=== PATIENT | female | born 1990 | race Caucasian/White ===

== ENCOUNTER 2016-09-21 11:37 | Emergency (ER) | payer MEDICARE, MEDICAID ==
[~2016-09-21] VITALS: Ht 175.3 cm; Wt 96.8 kg
[~2016-09-21 11:37] MED LIST: ACULAR OPHTHALMI5 ML OS; ADDERALL30 MG PO; ADIPEX-P37.5 M1 PO; ADIPEX-P37.5 MG PO; AMBIEN 5MG TABLE5 MG PO; AMOXICILLIN 50500 MG PO; AMOXICILLIN 8751 TAB PO; ANTIVERT 25MG25 MG PO; ASPIRIN 32325 MG/TAB PO; ATIVAN 0.50.5 MG/TAB PO; B-12 500 MCG PO; BACTRIM DS 8001 TAB PO; CAMBIA50 MG PO; CARAFATE S1 GM/10 ML PO; CEPHALEXIN500 M1 PO; CIPRO 500MG TA500 MG PO; COMPAZINE 110 MG/TAB PO; CYANOCOBAL1000 MCG/1 IM; DIAMOX 250MG250 MG PO; DIAMOX SEQUELS500 M1 PO; EFFEXOR XR37.5 MG/CA PO; EFFEXOR XR75 MG/CAP PO; EYE DROPS; FIORICET 325 MG1 TA1 PO; FLAGYL500 MG PO; FOLIC ACID 11 MG/TA1 PO; HIBICLENS4% TP; IMITREX 6M6 MG/0.5 M SQ; INDERAL 10MG10 MG PO; INDOCIN25 MG PO; K-DUR 10 MEQ T10 MEQ PO; K-TAB20 PO; KLOR-CON M2020 MEQ PO; KLOR-CON20 MEQ PO; LEVAQUIN 5500 MG/TA1 PO; LEXAPRO 5MG5 MG PO; LORTAB 5/500 501 TAB PO; LORTABELIX PO; LOVENOX 4040 MG/0.4 SQ; MAXALT5 MG PO; MOTRIN 800800 MG/TAB PO; MULTI VITAMINS1 TAB PO; NAPROSYN500 MG PO; NAPROXEN 3375 MG/TAB PO; NEURONTIN250 MG/5 M PO; NO HOME MEDICATIONS; NORCO 325 MG-51 TAB PO; NORCO 325 MG-7.1 TAB PO; NORCOELIX PO; OSCAL 500 TAB500 MG PO; PEN-VEE K500 MG PO; PERCOCET 325 MG1 TA2 PO; PHENERGAN 25 TA25 MG PO; PHENERGAN W/CO120 ML PO; PHENERGAN25 MG RC; PREDNISONE20 MG PO; PRILOSEC 20MG20 MG PO; PROMETHAZINE12.5 M5 PO; REGLAN 10MG10 MG/TAB PO; ROBITUSSIN A-C S1 M1 PO; TEMOVATE OINT30 GM TP; THIAMINE 1100 MG/TAB PO; TORADOL10 MG PO; TRAMADOL50 MG PO; TROKEN200; TROKEND25 PO; TYLENOL 500MG500 MG PO; TYLENOL/CODEINE1 ML PO; ULTRAM 50MG TAB50 MG PO; VALIUM 2MG T2 MG/TAB PO; VALIUM 5MG T5 MG/TAB PO; VIGAMOX 0.5%; VITAMIN B-625 MG PO; VITAMIN B11000 MCG/M IM; VITAMIN D 1001000 IU PO; VITAMIN D1000 IU PO; WELLBUTRIN SR150 M1; ZITHROMAX 250M250 MG PO; ZITHROMAX Z PA250 MG PO; ZITHROMAX500 M2 PO; ZOFRAN 4MG T4 MG/TAB; ZOFRAN 4MG T4 MG/TAB PO; ZOFRAN INJ4 MG/2 ML IV; ZOFRAN ODT4 MG PO; ZOFRAN ODT8 MG PO; ZOFRAN8 MG PO; antibiotic
[2016-09-21 11:40] VITALS: BP 118/64; TEMP 98.1
[2016-09-21 12:24] LABS: HEMOGLOBIN 12.3 g/dl (12.5-16.0); MEAN CELL VOLUME 100 fl (80.0-100.0); MEAN CORPUSCULAR HEMOGLOBIN 34 pg (27.0-31.0); MEAN CORPUSCULAR HGB CONC 34 g/dl (33.0-37.0); MEAN PLATELET VOLUME 10.6 fl (7.4-10.4); PLATELET COUNT 212 K/mm3 (130-400); RED BLOOD COUNT 3.58 M/mm3 (4.10-5.30); REDCELL DISTRIBUTION WIDTH-CV 12.1 % (11.5-14.5); WHITE BLOOD COUNT 3.5 K/mm3 (4.8-10.8)
[2016-09-21 12:25] LABS: ADD PATHOLOGY DIFF REVIEW NO; HEMATOCRIT 35.8 % (37.0-47.0)
[2016-09-21 12:44] LABS: ADJUSTED CALCIUM 9.1 mg/dL (8.4-10.2); BILIRUBIN,TOTAL 0.7 mg/dL (0.0-1.0); CALCIUM 8.3 mg/dL (8.4-10.2); CREATININE, serum 0.55 mg/dL (0.52-1.25); TOTAL PROTEIN 6.6 gm/dL (6.4-8.2)
[2016-09-21 13:06] LABS: PH 5 (5-8); URINE APPEARANCE Cloudy; URINE BACTERIA Rare /hpf; URINE BILIRUBIN Negative (NEGATIVE); URINE BLOOD 3+ (NEGATIVE); URINE COLOR Amber; URINE GLUCOSE Negative (NEGATIVE); URINE KETONE Trace (NEGATIVE); URINE RBC >50 /hpf; URINE WBC >50 /hpf
[2016-09-21 13:15] LABS: BAND 8 % (0-10); BASOPHIL 1 % (0-2); NEUTROPHILS 48 % (42.0-75.2); PLATELET ESTIMATE NORMAL (NORMAL); TOTAL CELLS COUNTED 100
[2016-09-21] MEDS ORDERED: NORCO 325 MG-51 TAB PO (13:20)
[2016-09-21] MEDS ORDERED: CEFTIN500 MG PO (13:20)
[2016-09-21 13:25] LABS: INFLUENZA B NEGATIVE
[2016-09-21 14:08] VITALS: PULSE 80
== END 2016-09-21 14:08 | disposition home or self-care (01) ==
LOC: COL.ER 11:37
PROVIDERS: Emergency Medicine
DX: N39.0 Urinary tract infection, site not specified (principal)
CPT/HCPCS: J0696; J2270; J2405; J7030

== ENCOUNTER 2016-12-14 17:08 | Emergency (ER) | payer MEDICARE, MEDICAID ==
[~2016-12-14] VITALS: Ht 175.3 cm; Wt 85.0 kg
[~2016-12-14 17:08] MED LIST changes: +CEFTIN500 MG PO
[2016-12-14 17:15] VITALS: BP 110/66; TEMP 97.8
[2016-12-14 18:08] LABS: PH 7 (5-8); URINE APPEARANCE Hazy; URINE BACTERIA Rare /hpf; URINE BILIRUBIN Negative (NEGATIVE); URINE BLOOD Negative (NEGATIVE); URINE COLOR Yellow; URINE GLUCOSE Negative (NEGATIVE); URINE KETONE Negative (NEGATIVE); URINE RBC 0-2 /hpf; URINE UROBILINOGEN >=4.0 mg/dL (NEGATIVE)
[2016-12-14 18:15] LABS: BASO % 0.2 % (0.0-2.0); EOS % 0.7 % (0-4.0); GRAN # 2.2 (1.4-6.5); GRAN % 46.6 % (42.2-75.2); HEMATOCRIT 40.8 % (37.0-47.0); LYMPH # 2.1 (1.2-3.4); LYMPH % 46.4 % (20.0-51.0); MEAN CELL VOLUME 99 fl (80.0-100.0); MEAN CORPUSCULAR HEMOGLOBIN 34 pg (27.0-31.0); MEAN CORPUSCULAR HGB CONC 34 g/dl (33.0-37.0); MEAN PLATELET VOLUME 10.2 fl (7.4-10.4); MONO # 0.3 (0.1-0.6); MONO % 5.9 % (1.7-9.3); PLATELET COUNT 286 K/mm3 (130-400); RED BLOOD COUNT 4.12 M/mm3 (4.10-5.30); REDCELL DISTRIBUTION WIDTH-CV 12.4 % (11.5-14.5); WHITE BLOOD COUNT 4.6 K/mm3 (4.8-10.8)
[2016-12-14 18:22] LABS: ADJUSTED CALCIUM 9.7 mg/dL (8.4-10.2); ALBUMIN 3.9 gm/dL (3.5-5.0); BILIRUBIN,TOTAL 0.9 mg/dL (0.0-1.0); CALCIUM 9.6 mg/dL (8.4-10.2); CREATININE, serum 0.64 mg/dL (0.52-1.25); POTASSIUM 3.6 mmol/L (3.4-5.0); TOTAL PROTEIN 7.7 gm/dL (6.4-8.2)
[2016-12-14] MEDS ORDERED: ZOFRAN 4MG T4 MG/TAB PO (18:45)
[2016-12-14 19:18] VITALS: PULSE 92
== END 2016-12-14 19:20 | disposition home or self-care (01) ==
LOC: COL.ER 17:08
PROVIDERS: Nurse Practitioner
DX: R10.84 Generalized abdominal pain (principal); Z87.442 Personal history of urinary calculi; F17.210 Nicotine dependence, cigarettes, uncomplicated; Z98.84 Bariatric surgery status
CPT/HCPCS: J1885; J2405; J7030

== ENCOUNTER → 2016-12-26 | Outpatient (CLI) | payer MEDICARE, MEDICAID | LOC: ZCOL.LAB 16:22 | DX: Z02.89 Encounter for other administrative examinations (principal) ==

== ENCOUNTER → 2017-02-01 | Outpatient (REF) ==
[2017-02-01 19:19] LABS: TOTAL IRON BINDING CAPACITY 400 ug/dL (265-497)
== END ==
LOC: ZLAB.WCH 18:33
PROVIDERS: Internal Medicine
DX: Z01.89 Encounter for other specified special examinations (principal)

== ENCOUNTER 2017-02-27 16:35 | Emergency (ER) | payer MEDICARE, MEDICAID ==
[~2017-02-27] VITALS: Ht 175.3 cm; Wt 87.3 kg
[2017-02-27 16:45] VITALS: BP 119/82; TEMP 97.7
[2017-02-27 18:15] LABS: BASO % 0.3 % (0.0-2.0); EOS % 0.3 % (0-4.0); GRAN % 49.6 % (42.2-75.2); HEMOGLOBIN 12.7 g/dl (12.5-16.0); LYMPH # 1.7 (1.2-3.4); LYMPH % 43.4 % (20.0-51.0); MEAN CELL VOLUME 101 fl (80.0-100.0); MEAN CORPUSCULAR HEMOGLOBIN 35 pg (27.0-31.0); MEAN CORPUSCULAR HGB CONC 35 g/dl (33.0-37.0); MEAN PLATELET VOLUME 10.2 fl (7.4-10.4); MONO # 0.2 (0.1-0.6); MONO % 6.1 % (1.7-9.3); PLATELET COUNT 192 K/mm3 (130-400); RED BLOOD COUNT 3.66 M/mm3 (4.10-5.30); REDCELL DISTRIBUTION WIDTH-CV 13.7 % (11.5-14.5); WHITE BLOOD COUNT 3.9 K/mm3 (4.8-10.8)
[2017-02-27 18:16] LABS: HEMATOCRIT 36.8 % (37.0-47.0)
[2017-02-27 18:27] LABS: ADJUSTED CALCIUM 9.2 mg/dL (8.4-10.2); ALANINE AMINOTRANSFERASE 17 U/L (9-52); ALBUMIN 3.4 gm/dL (3.5-5.0); ALKALINE PHOSPHATASE 77 U/L (50-136); ANION GAP 10 mmol/L (7-16); BILIRUBIN,TOTAL 1.4 mg/dL (0.0-1.0); BLOOD UREA NITROGEN 9 mg/dL (7-17); CALCIUM 8.7 mg/dL (8.4-10.2); CARBON DIOXIDE 22 mmol/L (22-30); CHLORIDE 106 mmol/L (98-107); CREATININE, serum 0.54 mg/dL (0.52-1.25); GLUCOSE 80 mg/dL (74-106); LIPASE 20 U/L (23-300); POTASSIUM 3.4 mmol/L (3.4-5.0); SODIUM 137 mmol/L (137-145); TOTAL PROTEIN 6.8 gm/dL (6.4-8.2)
[2017-02-27 18:35] LABS: C-REACTIVE PROTEIN < 0.5 mg/dL (0.0-0.9)
[2017-02-27 19:40] LABS: PH 6 (5-8); URINE APPEARANCE Hazy; URINE BACTERIA None Seen /hpf; URINE BILIRUBIN Negative (NEGATIVE); URINE BLOOD Negative (NEGATIVE); URINE COLOR Yellow; URINE GLUCOSE Negative (NEGATIVE); URINE KETONE 1+ (NEGATIVE); URINE RBC 0-2 /hpf; URINE UROBILINOGEN Negative (NEGATIVE)
[2017-02-27 21:09] VITALS: PULSE 65
== END 2017-02-27 21:10 | disposition home or self-care (01) ==
LOC: COL.ER 16:35
PROVIDERS: Nurse Practitioner
DX: M54.6 Pain in thoracic spine (principal); R10.13 Epigastric pain; G93.2 Benign intracranial hypertension; F17.200 Nicotine dependence, unspecified, uncomplicated; F12.99 Cannabis use, unspecified with unspecified cannabis-induced disorder; G43.909 Migraine, unspecified, not intractable, without status migrainosus; Z87.442 Personal history of urinary calculi; Z90.49 Acquired absence of other specified parts of digestive tract; Z98.84 Bariatric surgery status
CPT/HCPCS: J1885; J2405; J7030

== ENCOUNTER 2017-07-07 00:14 | Emergency (ER) | payer MEDICARE, MEDICAID ==
[~2017-07-07] VITALS: Ht 175.3 cm; Wt 93.2 kg
[~2017-07-07 00:14] MED LIST changes: +ADDERALL10 MG PO; +KLOR-CON/EF25 MEQ PO; +LINZESS290CAP PO; +MONONESSA 35 MC1 TA1 PO; +NATURE'S BLEND100 M2 PO; +PRIL40 PO; -PRILOSEC 20MG20 MG PO; +PROZAC40 MG PO; +VITAMIN B12 781 TAB PO; -VITAMIN D1000 IU PO; +VITAMIND3 5000 PO; +XANAX 0.5MG0.5 MG PO; +ZOLOFT 50MG50 MG PO
[2017-07-07 00:20] VITALS: TEMP 98.6
[2017-07-07 01:25] LABS: BASO % 0.4 % (0.0-2.0); EOS % 0.6 % (0-4.0); GRAN # 2.8 (1.4-6.5); GRAN % 52.3 % (42.2-75.2); LYMPH # 2.1 (1.2-3.4); LYMPH % 40.3 % (20.0-51.0); MEAN CELL VOLUME 101 fl (80.0-100.0); MEAN CORPUSCULAR HGB CONC 34 g/dl (33.0-37.0); MEAN PLATELET VOLUME 10.1 fl (7.4-10.4); MONO # 0.3 (0.1-0.6); MONO % 6.2 % (1.7-9.3); PLATELET COUNT 199 K/mm3 (130-400); RED BLOOD COUNT 3.49 M/mm3 (4.10-5.30); WHITE BLOOD COUNT 5.3 K/mm3 (4.8-10.8)
[2017-07-07 01:31] LABS: COLLECTION METHOD CLEAN CATCH
[2017-07-07 01:34] LABS: ADJUSTED CALCIUM 8.8 mg/dL (8.4-10.2); ALBUMIN 3.6 gm/dL (3.5-5.0); CALCIUM 8.5 mg/dL (8.4-10.2); CREATININE, serum 0.51 mg/dL (0.52-1.25); POTASSIUM 3.2 mmol/L (3.4-5.0); TOTAL PROTEIN 6.6 gm/dL (6.4-8.2)
[2017-07-07 01:37] LABS: HEMATOCRIT 35.2 % (37.0-47.0); HEMOGLOBIN 11.8 g/dl (12.5-16.0); MEAN CORPUSCULAR HEMOGLOBIN 34 pg (27.0-31.0)
[2017-07-07 01:37] LABS: MUCOUS Present /lpf; PH 6 (5-8); URINE APPEARANCE Hazy; URINE BACTERIA None Seen /hpf; URINE BILIRUBIN Negative (NEGATIVE); URINE BLOOD Negative (NEGATIVE); URINE COLOR Yellow; URINE GLUCOSE Negative (NEGATIVE); URINE KETONE Trace (NEGATIVE); URINE LEUKOCYTE ESTERASE Negative (NEGATIVE); URINE PROTEIN(semi-quant) 1+ (NEGATIVE); URINE RBC 0-2 /hpf; URINE UROBILINOGEN >=4.0 mg/dL (NEGATIVE)
[2017-07-07 02:32] VITALS: BP 110/74; PULSE 91
== END 2017-07-07 02:23 | disposition home or self-care (01) ==
LOC: COL.ER 00:14
PROVIDERS: Physician Assistant
DX: E87.6 Hypokalemia (principal); F90.9 Attention-deficit hyperactivity disorder, unspecified type; F17.210 Nicotine dependence, cigarettes, uncomplicated; Z90.49 Acquired absence of other specified parts of digestive tract; Z98.890 Other specified postprocedural states; Z98.84 Bariatric surgery status

== ENCOUNTER 2017-08-18 23:48 | Emergency (ER) | payer MEDICARE, MEDICAID ==
[~2017-08-18] VITALS: Ht 172.7 cm; Wt 93.2 kg
[2017-08-18 23:51] VITALS: TEMP 97.9
[2017-08-18] MEDS ORDERED: EFFEXOR XR37.5 MG/CA PO (23:58)
[2017-08-18] MEDS ORDERED: B COMPLEX #11 TA1 PO (23:59)
[2017-08-19] MEDS ORDERED: AMBIEN 10MG10 MG PO
[2017-08-19 00:46] LABS: BASO % 0.3 % (0.0-2.0); EOS # 0.1 (0.0-0.7); EOS % 0.8 % (0-4.0); GRAN # 3.5 (1.4-6.5); HEMATOCRIT 37.5 % (37.0-47.0); HEMOGLOBIN 12.2 g/dl (12.5-16.0); LYMPH # 2.7 (1.2-3.4); LYMPH % 40.7 % (20.0-51.0); MEAN CELL VOLUME 101 fl (80.0-100.0); MEAN CORPUSCULAR HEMOGLOBIN 33 pg (27.0-31.0); MEAN CORPUSCULAR HGB CONC 33 g/dl (33.0-37.0); MEAN PLATELET VOLUME 9.7 fl (7.4-10.4); MONO # 0.3 (0.1-0.6); MONO % 4.9 % (1.7-9.3); PLATELET COUNT 291 K/mm3 (130-400); RED BLOOD COUNT 3.73 M/mm3 (4.10-5.30); REDCELL DISTRIBUTION WIDTH-CV 13.3 % (11.5-14.5)
[2017-08-19 01:00] LABS: ALANINE AMINOTRANSFERASE 22 U/L (9-52); ALBUMIN 3.8 gm/dL (3.5-5.0); ALKALINE PHOSPHATASE 85 U/L (50-136); ANION GAP 9 mmol/L (7-16); AST,SGOT 15 U/L (15-37); BILIRUBIN,TOTAL 0.4 mg/dL (0.0-1.0); BLOOD UREA NITROGEN 15 mg/dL (7-17); CALCIUM 8.7 mg/dL (8.4-10.2); CARBON DIOXIDE 24 mmol/L (22-30); CHLORIDE 108 mmol/L (98-107); GLUCOSE 99 mg/dL (74-106); POTASSIUM 3.6 mmol/L (3.4-5.0); SODIUM 141 mmol/L (137-145); TOTAL PROTEIN 7.3 gm/dL (6.4-8.2)
[2017-08-19 01:03] LABS: C-REACTIVE PROTEIN < 0.5 mg/dL (0.0-0.9)
[2017-08-19 01:12] LABS: ERYTHROCYTE SEDIMENTATION RATE 34 mm/hr (0-20)
[2017-08-19 01:20] LABS: COLLECTION METHOD CLEAN CATCH
[2017-08-19 01:26] LABS: MUCOUS Present /lpf; PH 6 (5-8); URINE APPEARANCE Hazy; URINE BACTERIA Rare /hpf; URINE BILIRUBIN Negative (NEGATIVE); URINE BLOOD 3+ (NEGATIVE); URINE COLOR Yellow; URINE GLUCOSE Negative (NEGATIVE); URINE KETONE Negative (NEGATIVE); URINE LEUKOCYTE ESTERASE Trace (NEGATIVE); URINE NITRATE Negative (NEGATIVE); URINE PROTEIN(semi-quant) 2+ (NEGATIVE); URINE RBC >50 /hpf
[2017-08-19] MEDS ORDERED: CIPRO 500MG TA500 MG PO (01:40)
[2017-08-19 02:52] VITALS: BP 102/50; PULSE 75
== END 2017-08-19 02:57 | disposition home or self-care (01) ==
LOC: COL.ER 23:48
PROVIDERS: Nurse Practitioner Primary Care
DX: N12 Tubulo-interstitial nephritis, not specified as acute or chronic (principal); F17.210 Nicotine dependence, cigarettes, uncomplicated; Z90.49 Acquired absence of other specified parts of digestive tract; Z87.442 Personal history of urinary calculi
CPT/HCPCS: J0696

== ENCOUNTER → 2017-09-24 | Outpatient (REF) ==
[~2017-09-24] MED LIST changes: +AMBIEN 10MG10 MG PO; +B COMPLEX #11 TA1 PO
[2017-09-24 18:48] LABS: IRON,SERUM 67 ug/dL (35-150)
[2017-09-24 18:57] LABS: TOTAL IRON BINDING CAPACITY 421 ug/dL (265-497)
== END ==
LOC: ZLAB.WCH 18:26
PROVIDERS: Physician Assistant
DX: Z01.89 Encounter for other specified special examinations (principal)

== ENCOUNTER → 2018-01-02 | Outpatient (REF) | LOC: ZLAB.WCH 16:03 | DX: Z01.89 Encounter for other specified special examinations (principal) ==

== ENCOUNTER 2018-04-11 13:27 | Emergency (ER) | payer MEDICARE, MEDICAID ==
[~2018-04-11] VITALS: Ht 175.3 cm; Wt 104.5 kg
[2018-04-11 13:31] VITALS: TEMP 98.6
[2018-04-11] MEDS ORDERED: VENTOLIN0.09 MG IH (13:58)
[2018-04-11] MEDS ORDERED: ZOLOFT 100MG100 MG PO (13:59)
[2018-04-11] MEDS ORDERED: FLONASE NASAL S16 GM NS (14:00)
[2018-04-11 14:21] LABS: COLLECTION METHOD CLEAN CATCH
[2018-04-11 14:26] LABS: BASO % 0.5 % (0.0-2.0); EOS # 0.1 (0.0-0.7); EOS % 1.2 % (0-4.0); GRAN # 2.9 (1.4-6.5); GRAN % 51.2 % (42.2-75.2); HEMATOCRIT 37.4 % (37.0-47.0); HEMOGLOBIN 12.1 g/dl (12.5-16.0); LYMPH # 2.3 (1.2-3.4); LYMPH % 39.7 % (20.0-51.0); MEAN CELL VOLUME 100 fl (80.0-100.0); MEAN CORPUSCULAR HEMOGLOBIN 32 pg (27.0-31.0); MEAN CORPUSCULAR HGB CONC 32 g/dl (33.0-37.0); MEAN PLATELET VOLUME 9.6 fl (7.4-10.4); MONO # 0.4 (0.1-0.6); MONO % 7.2 % (1.7-9.3); PLATELET COUNT 308 K/mm3 (130-400); RED BLOOD COUNT 3.76 M/mm3 (4.10-5.30)
[2018-04-11 14:37] LABS: ALBUMIN 3.7 gm/dL (3.5-5.0); BILIRUBIN,TOTAL 0.6 mg/dL (0.0-1.0); CREATININE, serum 0.58 mg/dL (0.52-1.25); POTASSIUM 3.8 mmol/L (3.4-5.0); TOTAL PROTEIN 7.4 gm/dL (6.4-8.2)
[2018-04-11 15:00] LABS: MUCOUS Present /lpf; PH 6 (5-8); URINE APPEARANCE Hazy; URINE BACTERIA None Seen /hpf; URINE BILIRUBIN Negative (NEGATIVE); URINE BLOOD 3+ (NEGATIVE); URINE COLOR Yellow; URINE GLUCOSE Negative (NEGATIVE); URINE KETONE Negative (NEGATIVE); URINE LEUKOCYTE ESTERASE Negative (NEGATIVE); URINE NITRATE Negative (NEGATIVE); URINE PROTEIN(semi-quant) 1+ (NEGATIVE); URINE UROBILINOGEN Negative (NEGATIVE)
[2018-04-11] MEDS ORDERED: FLEXERIL 1010 MG/TAB PO (15:05)
[2018-04-11 15:25] VITALS: BP 101/55; PULSE 66
== END 2018-04-11 15:29 | disposition home or self-care (01) ==
LOC: COL.ER 13:27
PROVIDERS: Emergency Medicine
DX: M54.5 Low back pain (principal); M53.3 Sacrococcygeal disorders, not elsewhere classified; F17.210 Nicotine dependence, cigarettes, uncomplicated; Z79.899 Other long term (current) drug therapy
CPT/HCPCS: J1630; J2270; J2405; J7030

== ENCOUNTER 2018-05-03 08:02 | Emergency (ER) | payer MEDICARE, MEDICAID ==
[~2018-05-03] VITALS: Ht 175.3 cm; Wt 109.1 kg
[~2018-05-03 08:02] MED LIST changes: +FLEXERIL 1010 MG/TAB PO; +FLONASE NASAL S16 GM NS; +VENTOLIN0.09 MG IH; +ZOLOFT 100MG100 MG PO
[2018-05-03 08:11] VITALS: BP 118/77; TEMP 98.4
[2018-05-03] MEDS ORDERED: CRUTCHES MC (09:15)
[2018-05-03 09:26] VITALS: PULSE 94
== END 2018-05-03 09:26 | disposition home or self-care (01) ==
LOC: COL.ER 08:02
DX: S92.351A Displaced fracture of fifth metatarsal bone, right foot, initial encounter for closed fracture (principal); F17.210 Nicotine dependence, cigarettes, uncomplicated; Z79.51 Long term (current) use of inhaled steroids; X50.0XXA Overexertion from strenuous movement or load, initial encounter; Y92.009 Unspecified place in unspecified non-institutional (private) residence as the place of occurrence of the external cause
CPT/HCPCS: Q4045

== ENCOUNTER 2018-05-25 09:44 | Emergency (ER) | payer MEDICARE, MEDICAID ==
[~2018-05-25] VITALS: Ht 175.3 cm; Wt 100.0 kg
[~2018-05-25 09:44] MED LIST changes: +CRUTCHES MC
[2018-05-25 09:46] VITALS: TEMP 97.8
[2018-05-25] MEDS ORDERED: VOLTAREN-XR100 MG PO (09:57)
[2018-05-25] MEDS ORDERED: CYMBALTA 60MG60 MG PO (10:00)
[2018-05-25] MEDS ORDERED: CYMBALTA 30MG30 MG PO (10:01)
[2018-05-25 10:34] LABS: BASO % 0.6 % (0.0-2.0); EOS # 0.1 (0.0-0.7); EOS % 1.3 % (0-4.0); GRAN # 2.6 (1.4-6.5); GRAN % 54.9 % (42.2-75.2); HEMOGLOBIN 12.1 g/dl (12.5-16.0); LYMPH # 1.7 (1.2-3.4); LYMPH % 36.3 % (20.0-51.0); MEAN CELL VOLUME 95 fl (80.0-100.0); MEAN CORPUSCULAR HEMOGLOBIN 32 pg (27.0-31.0); MEAN CORPUSCULAR HGB CONC 33 g/dl (33.0-37.0); MEAN PLATELET VOLUME 10.2 fl (7.4-10.4); MONO # 0.3 (0.1-0.6); MONO % 6.7 % (1.7-9.3); PLATELET COUNT 226 K/mm3 (130-400); RED BLOOD COUNT 3.84 M/mm3 (4.10-5.30); REDCELL DISTRIBUTION WIDTH-CV 14.8 % (11.5-14.5)
[2018-05-25 10:38] LABS: HEMATOCRIT 36.5 % (37.0-47.0)
[2018-05-25 10:43] LABS: ALBUMIN 3.4 gm/dL (3.5-5.0); BILIRUBIN,TOTAL 0.9 mg/dL (0.0-1.0); CALCIUM 8.1 mg/dL (8.4-10.2); CREATININE, serum 0.66 mg/dL (0.52-1.25); POTASSIUM 3.5 mmol/L (3.4-5.0); TOTAL PROTEIN 6.8 gm/dL (6.4-8.2)
[2018-05-25 10:55] LABS: COLLECTION METHOD CLEAN CATCH
[2018-05-25 11:11] LABS: MUCOUS Present /lpf; PH 6 (5-8); SQUAMOUS EPITHELIAL 20-50 /hpf; URINE APPEARANCE Cloudy; URINE BACTERIA None Seen /hpf; URINE BILIRUBIN Negative (NEGATIVE); URINE BLOOD 2+ (NEGATIVE); URINE COLOR Yellow; URINE GLUCOSE Negative (NEGATIVE); URINE KETONE Negative (NEGATIVE); URINE LEUKOCYTE ESTERASE Trace (NEGATIVE); URINE NITRATE Negative (NEGATIVE); URINE PROTEIN(semi-quant) Negative (NEGATIVE); URINE UROBILINOGEN Negative (NEGATIVE)
[2018-05-25] MEDS ORDERED: PHENERGAN 25 TA25 MG PO (11:46)
[2018-05-25] MEDS ORDERED: PRIL40 PO (11:46)
[2018-05-25 12:04] VITALS: BP 100/74; PULSE 60
== END 2018-05-25 12:06 | disposition home or self-care (01) ==
LOC: COL.ER 09:44
PROVIDERS: Emergency Medicine
DX: R10.12 Left upper quadrant pain (principal); Z98.84 Bariatric surgery status; Z79.51 Long term (current) use of inhaled steroids; Z98.890 Other specified postprocedural states
CPT/HCPCS: C9113; J0780; J1170; J7030

== ENCOUNTER 2018-05-29 15:59 | Emergency (ER) | payer MEDICARE, MEDICAID ==
[~2018-05-29] VITALS: Ht 175.3 cm; Wt 106.8 kg
[~2018-05-29 15:59] MED LIST changes: +CYMBALTA 30MG30 MG PO; +CYMBALTA 60MG60 MG PO; +VOLTAREN-XR100 MG PO
[2018-05-29 16:04] VITALS: TEMP 98.4
[2018-05-29 16:28] LABS: BASO % 0.3 % (0.0-2.0); EOS % 0.3 % (0-4.0); GRAN # 4.1 (1.4-6.5); GRAN % 59.5 % (42.2-75.2); HEMATOCRIT 37.9 % (37.0-47.0); HEMOGLOBIN 12.6 g/dl (12.5-16.0); LYMPH # 2.3 (1.2-3.4); LYMPH % 34.2 % (20.0-51.0); MEAN CELL VOLUME 94 fl (80.0-100.0); MEAN CORPUSCULAR HEMOGLOBIN 31 pg (27.0-31.0); MEAN CORPUSCULAR HGB CONC 33 g/dl (33.0-37.0); MEAN PLATELET VOLUME 9.8 fl (7.4-10.4); MONO # 0.4 (0.1-0.6); MONO % 5.4 % (1.7-9.3); PLATELET COUNT 249 K/mm3 (130-400); RED BLOOD COUNT 4.03 M/mm3 (4.10-5.30); REDCELL DISTRIBUTION WIDTH-CV 15.1 % (11.5-14.5)
[2018-05-29 16:53] LABS: ALBUMIN 3.9 gm/dL (3.5-5.0); BILIRUBIN,TOTAL 0.8 mg/dL (0.0-1.0); CALCIUM 8.6 mg/dL (8.4-10.2); CREATININE, serum 0.55 mg/dL (0.52-1.25); POTASSIUM 3.9 mmol/L (3.4-5.0); TOTAL PROTEIN 7.4 gm/dL (6.4-8.2)
[2018-05-29] MEDS ORDERED: CARAFATE 1GM1 G PO (17:39)
[2018-05-29 18:14] VITALS: BP 105/74; PULSE 100
== END 2018-05-29 18:16 | disposition home or self-care (01) ==
LOC: COL.ER 15:59
PROVIDERS: Emergency Medicine
DX: R55 Syncope and collapse (principal); R11.0 Nausea; K29.70 Gastritis, unspecified, without bleeding; F17.210 Nicotine dependence, cigarettes, uncomplicated; E66.9 Obesity, unspecified; Z98.84 Bariatric surgery status; Z79.51 Long term (current) use of inhaled steroids
CPT/HCPCS: J2405; J7030

== ENCOUNTER 2018-07-13 16:01 | Emergency (ER) | payer MEDICARE, MEDICAID ==
[~2018-07-13] VITALS: Ht 175.3 cm; Wt 104.5 kg
[~2018-07-13 16:01] MED LIST changes: +CARAFATE 1GM1 G PO
[2018-07-13 16:06] VITALS: TEMP 98.8
[2018-07-13 16:41] LABS: COLLECTION METHOD CLEAN CATCH
[2018-07-13 16:45] LABS: BASO % 0.5 % (0.0-2.0); EOS % 0.4 % (0-4.0); GRAN # 3.1 (1.4-6.5); GRAN % 54.1 % (42.2-75.2); HEMOGLOBIN 12.2 g/dl (12.5-16.0); LYMPH # 2.2 (1.2-3.4); LYMPH % 37.8 % (20.0-51.0); MEAN CELL VOLUME 96 fl (80.0-100.0); MEAN CORPUSCULAR HEMOGLOBIN 32 pg (27.0-31.0); MEAN CORPUSCULAR HGB CONC 33 g/dl (33.0-37.0); MEAN PLATELET VOLUME 9.5 fl (7.4-10.4); MONO # 0.4 (0.1-0.6); MONO % 7.2 % (1.7-9.3); PLATELET COUNT 258 K/mm3 (130-400); RED BLOOD COUNT 3.79 M/mm3 (4.10-5.30); REDCELL DISTRIBUTION WIDTH-CV 16.4 % (11.5-14.5)
[2018-07-13] MEDS ORDERED: CYMBALTA 30MG30 MG PO (16:50)
[2018-07-13 16:55] LABS: HEMATOCRIT 36.5 % (37.0-47.0)
[2018-07-13 16:56] LABS: MUCOUS Present /lpf; PH 5 (5-8); URINE APPEARANCE Clear; URINE BACTERIA Rare /hpf; URINE BILIRUBIN Negative (NEGATIVE); URINE BLOOD 3+ (NEGATIVE); URINE COLOR Yellow; URINE GLUCOSE Negative (NEGATIVE); URINE KETONE Trace (NEGATIVE); URINE LEUKOCYTE ESTERASE Trace (NEGATIVE); URINE NITRATE Negative (NEGATIVE); URINE PROTEIN(semi-quant) 2+ (NEGATIVE); URINE RBC 0-2 /hpf
[2018-07-13 17:08] LABS: ALANINE AMINOTRANSFERASE 25 U/L (9-52); ALBUMIN 3.8 gm/dL (3.5-5.0); ALKALINE PHOSPHATASE 103 U/L (50-136); ANION GAP 6 mmol/L (7-16); AST,SGOT 34 U/L (15-37); BILIRUBIN,TOTAL 0.8 mg/dL (0.0-1.0); BLOOD UREA NITROGEN 11 mg/dL (7-17); CALCIUM 8.7 mg/dL (8.4-10.2); CARBON DIOXIDE 26 mmol/L (22-30); CHLORIDE 109 mmol/L (98-107); CREATININE, serum 0.68 mg/dL (0.52-1.25); GLUCOSE 104 mg/dL (74-106); LIPASE 35 U/L (23-300); POTASSIUM 3.8 mmol/L (3.4-5.0); SODIUM 140 mmol/L (137-145); TOTAL PROTEIN 7.4 gm/dL (6.4-8.2)
[2018-07-13 17:11] LABS: C-REACTIVE PROTEIN < 0.5 mg/dL (0.0-0.9)
[2018-07-13 18:15] VITALS: BP 104/63; PULSE 88
== END 2018-07-13 18:16 | disposition home or self-care (01) ==
LOC: COL.ER 16:01
PROVIDERS: Emergency Medicine
DX: R10.31 Right lower quadrant pain (principal); R11.2 Nausea with vomiting, unspecified; F32.9 Major depressive disorder, single episode, unspecified; F41.9 Anxiety disorder, unspecified; F17.210 Nicotine dependence, cigarettes, uncomplicated; E66.9 Obesity, unspecified; Z98.890 Other specified postprocedural states; Z98.84 Bariatric surgery status; Z90.49 Acquired absence of other specified parts of digestive tract; Z68.34 Body mass index [BMI] 34.0-34.9, adult
CPT/HCPCS: J2405; J3010; J7030

== ENCOUNTER 2018-07-23 17:33 | Emergency (ER) | payer MEDICARE, MEDICAID ==
[~2018-07-23] VITALS: Ht 175.3 cm; Wt 106.8 kg
[2018-07-23 17:49] VITALS: TEMP 99.1
[2018-07-23 18:12] LABS: COLLECTION METHOD CLEAN CATCH
[2018-07-23 18:21] LABS: MUCOUS Present /lpf; PH 8 (5-8); SQUAMOUS EPITHELIAL 0-2 /hpf; URINE APPEARANCE Clear; URINE BACTERIA Rare /hpf; URINE BILIRUBIN Negative (NEGATIVE); URINE BLOOD 2+ (NEGATIVE); URINE COLOR Straw; URINE GLUCOSE Negative (NEGATIVE); URINE KETONE Negative (NEGATIVE); URINE LEUKOCYTE ESTERASE 2+ (NEGATIVE); URINE NITRATE Negative (NEGATIVE); URINE PROTEIN(semi-quant) Negative (NEGATIVE); URINE UROBILINOGEN Negative (NEGATIVE)
[2018-07-23 19:08] LABS: BASO % 0.6 % (0.0-2.0); EOS # 0.1 (0.0-0.7); EOS % 1.6 % (0-4.0); GRAN # 2.7 (1.4-6.5); GRAN % 53.2 % (42.2-75.2); HEMATOCRIT 38.4 % (37.0-47.0); HEMOGLOBIN 12.4 g/dl (12.5-16.0); LYMPH # 1.9 (1.2-3.4); LYMPH % 38.4 % (20.0-51.0); MEAN CELL VOLUME 98 fl (80.0-100.0); MEAN CORPUSCULAR HEMOGLOBIN 32 pg (27.0-31.0); MEAN CORPUSCULAR HGB CONC 32 g/dl (33.0-37.0); MEAN PLATELET VOLUME 9.7 fl (7.4-10.4); MONO # 0.3 (0.1-0.6); PLATELET COUNT 267 K/mm3 (130-400); RED BLOOD COUNT 3.93 M/mm3 (4.10-5.30); REDCELL DISTRIBUTION WIDTH-CV 15.9 % (11.5-14.5)
[2018-07-23 19:23] LABS: ALBUMIN 3.9 gm/dL (3.5-5.0); BILIRUBIN,TOTAL 0.4 mg/dL (0.0-1.0); C-REACTIVE PROTEIN 0.9 mg/dL (0.0-0.9); CALCIUM 8.5 mg/dL (8.4-10.2); CREATININE, serum 0.55 mg/dL (0.52-1.25); TOTAL PROTEIN 7.4 gm/dL (6.4-8.2)
[2018-07-23] MEDS ORDERED: CIPRO 500MG TA500 MG PO (20:34)
[2018-07-23 20:44] VITALS: BP 136/74; PULSE 90
== END 2018-07-23 20:59 | disposition home or self-care (01) ==
LOC: COL.ER 17:33
PROVIDERS: Nurse Practitioner
DX: N39.0 Urinary tract infection, site not specified (principal); F41.9 Anxiety disorder, unspecified; F90.9 Attention-deficit hyperactivity disorder, unspecified type; G43.909 Migraine, unspecified, not intractable, without status migrainosus; F32.9 Major depressive disorder, single episode, unspecified; J45.909 Unspecified asthma, uncomplicated; M54.9 Dorsalgia, unspecified; G89.29 Other chronic pain; F17.210 Nicotine dependence, cigarettes, uncomplicated; F12.10 Cannabis abuse, uncomplicated; Z79.899 Other long term (current) drug therapy; Z90.49 Acquired absence of other specified parts of digestive tract; Z88.8 Allergy status to other drugs, medicaments and biological substances
CPT/HCPCS: J1170; J7030

== ENCOUNTER 2018-08-26 19:28 | Emergency (ER) | payer MEDICARE, MEDICAID ==
[~2018-08-26] VITALS: Ht 175.3 cm; Wt 118.2 kg
[2018-08-26 19:36] VITALS: TEMP 98.4
[2018-08-26 21:04] LABS: BASO % 0.4 % (0.0-2.0); GRAN # 5.1 (1.4-6.5); GRAN % 67.5 % (42.2-75.2); LYMPH % 26.5 % (20.0-51.0); MEAN CELL VOLUME 96 fl (80.0-100.0); MEAN CORPUSCULAR HEMOGLOBIN 32 pg (27.0-31.0); MEAN CORPUSCULAR HGB CONC 33 g/dl (33.0-37.0); MEAN PLATELET VOLUME 9.5 fl (7.4-10.4); MONO # 0.4 (0.1-0.6); MONO % 5.5 % (1.7-9.3); PLATELET COUNT 289 K/mm3 (130-400); RED BLOOD COUNT 3.79 M/mm3 (4.10-5.30); REDCELL DISTRIBUTION WIDTH-CV 14.6 % (11.5-14.5)
[2018-08-26 21:11] LABS: ALANINE AMINOTRANSFERASE 19 U/L (9-52); ALKALINE PHOSPHATASE 139 U/L (50-136); ANION GAP 9 mmol/L (7-16); AST,SGOT 30 U/L (15-37); BILIRUBIN,TOTAL 1.1 mg/dL (0.0-1.0); BLOOD UREA NITROGEN 9 mg/dL (7-17); C-REACTIVE PROTEIN < 0.5 mg/dL (0.0-0.9); CALCIUM 8.7 mg/dL (8.4-10.2); CARBON DIOXIDE 23 mmol/L (22-30); CHLORIDE 105 mmol/L (98-107); GLUCOSE 99 mg/dL (74-106); LIPASE 46 U/L (23-300); POTASSIUM 3.3 mmol/L (3.4-5.0); SODIUM 137 mmol/L (137-145); TOTAL PROTEIN 7.7 gm/dL (6.4-8.2)
[2018-08-26 21:17] LABS: HEMATOCRIT 36.4 % (37.0-47.0)
[2018-08-26] MEDS ORDERED: ADDERALL30 MG PO (21:18)
[2018-08-26] MEDS ORDERED: ABILIFY2 MG PO (21:19)
[2018-08-26 21:26] LABS: COLLECTION METHOD CLEAN CATCH
[2018-08-26 21:36] LABS: MUCOUS Present /lpf; PH 6 (5-8); SQUAMOUS EPITHELIAL 20-50 /hpf; URINE APPEARANCE Cloudy; URINE BACTERIA None Seen /hpf; URINE BILIRUBIN Negative (NEGATIVE); URINE BLOOD Negative (NEGATIVE); URINE COLOR Yellow; URINE GLUCOSE Negative (NEGATIVE); URINE KETONE 1+ (NEGATIVE); URINE LEUKOCYTE ESTERASE Negative (NEGATIVE); URINE NITRATE Negative (NEGATIVE); URINE PROTEIN(semi-quant) 1+ (NEGATIVE); URINE RBC 0-2 /hpf
[2018-08-26 23:06] VITALS: BP 134/70; PULSE 84
== END 2018-08-26 23:08 | disposition home or self-care (01) ==
LOC: COL.ER 19:28
PROVIDERS: Emergency Medicine
DX: G89.29 Other chronic pain (principal); R10.13 Epigastric pain; F17.210 Nicotine dependence, cigarettes, uncomplicated; Z98.84 Bariatric surgery status
CPT/HCPCS: J2060; J2405; J2550; J7030

== ENCOUNTER 2018-09-09 10:32 | Emergency (ER) | payer MEDICARE, MEDICAID ==
[~2018-09-09] VITALS: Ht 175.3 cm; Wt 113.6 kg
[~2018-09-09 10:32] MED LIST changes: +ABILIFY2 MG PO
[2018-09-09 10:44] VITALS: TEMP 98
[2018-09-09 11:34] LABS: COLLECTION METHOD CLEAN CATCH
[2018-09-09 11:40] LABS: BASO % 0.4 % (0.0-2.0); EOS % 0.4 % (0-4.0); GRAN # 3.6 (1.4-6.5); GRAN % 70.8 % (42.2-75.2); HEMOGLOBIN 11.9 g/dl (12.5-16.0); LYMPH # 1.1 (1.2-3.4); LYMPH % 20.6 % (20.0-51.0); MEAN CELL VOLUME 97 fl (80.0-100.0); MEAN CORPUSCULAR HEMOGLOBIN 32 pg (27.0-31.0); MEAN CORPUSCULAR HGB CONC 33 g/dl (33.0-37.0); MEAN PLATELET VOLUME 9.4 fl (7.4-10.4); MONO # 0.4 (0.1-0.6); MONO % 7.6 % (1.7-9.3); PLATELET COUNT 294 K/mm3 (130-400); RED BLOOD COUNT 3.75 M/mm3 (4.10-5.30); REDCELL DISTRIBUTION WIDTH-CV 14.5 % (11.5-14.5)
[2018-09-09 11:41] LABS: HEMATOCRIT 36.4 % (37.0-47.0)
[2018-09-09 11:43] LABS: MUCOUS Present /lpf; PH 7 (5-8); URINE APPEARANCE Hazy; URINE BACTERIA Rare /hpf; URINE BILIRUBIN Negative (NEGATIVE); URINE BLOOD 3+ (NEGATIVE); URINE COLOR Yellow; URINE GLUCOSE Negative (NEGATIVE); URINE KETONE Negative (NEGATIVE); URINE LEUKOCYTE ESTERASE Negative (NEGATIVE); URINE NITRATE Negative (NEGATIVE); URINE PROTEIN(semi-quant) Negative (NEGATIVE); URINE RBC 0-2 /hpf; URINE UROBILINOGEN Negative (NEGATIVE)
[2018-09-09 11:51] LABS: BILIRUBIN,TOTAL 1.3 mg/dL (0.0-1.0); C-REACTIVE PROTEIN 1.1 mg/dL (0.0-0.9); CALCIUM 8.7 mg/dL (8.4-10.2); CREATININE, serum 0.57 mg/dL (0.52-1.25); TOTAL PROTEIN 7.9 gm/dL (6.4-8.2)
[2018-09-09 13:13] VITALS: BP 114/85; PULSE 84
== END 2018-09-09 13:12 | disposition home or self-care (01) ==
LOC: COL.ER 10:32
PROVIDERS: Family Medicine
DX: K31.2 Hourglass stricture and stenosis of stomach (principal); E86.0 Dehydration; R10.9 Unspecified abdominal pain; Z98.84 Bariatric surgery status
CPT/HCPCS: J1170; J2405; J7030

== ENCOUNTER 2018-10-23 11:00 | Outpatient (RCR) | payer MEDICARE, MEDICAID ==
[2018-10-16 10:31] VITALS: BP 105/67; PULSE 85; TEMP 99.5
[2018-10-18 15:00] VITALS: BP 106/64; PULSE 86; TEMP 98.6
[2018-10-21 11:16] VITALS: BP 113/57; PULSE 89; TEMP 98.2
[~2018-10-23] VITALS: Ht 175.3 cm; Wt 126.4 kg
[~2018-10-23 11:00] MED LIST changes: +VITAMIN B COMPL1 SGL PO
[2018-10-23 11:15] VITALS: BP 100/64; PULSE 92; TEMP 98.3
== END 2018-10-23 12:36 | disposition home or self-care (01) ==
LOC: EUO 11:00
DX: E21.3 Hyperparathyroidism, unspecified (principal); E61.1 Iron deficiency
CPT/HCPCS: J2501; J2916

== ENCOUNTER 2018-11-02 16:47 | Emergency (ER) | payer MEDICARE, MEDICAID ==
[~2018-11-02] VITALS: Ht 175.3 cm; Wt 113.6 kg
[2018-11-02 16:50] VITALS: BP 112/70; TEMP 97
[2018-11-02 17:16] LABS: COLLECTION METHOD CLEAN CATCH
[2018-11-02 17:24] LABS: MUCOUS Present /lpf; PH 8 (5-8); URINE APPEARANCE Hazy; URINE BACTERIA None Seen /hpf; URINE BILIRUBIN Negative (NEGATIVE); URINE BLOOD Negative (NEGATIVE); URINE COLOR Yellow; URINE GLUCOSE Negative (NEGATIVE); URINE KETONE Negative (NEGATIVE); URINE LEUKOCYTE ESTERASE Negative (NEGATIVE); URINE NITRATE Negative (NEGATIVE); URINE PROTEIN(semi-quant) Negative (NEGATIVE); URINE RBC 0-2 /hpf
[2018-11-02 17:36] LABS: BASO % 0.5 % (0.0-2.0); EOS # 0.1 (0.0-0.7); EOS % 0.9 % (0-4.0); GRAN # 3.2 (1.4-6.5); GRAN % 55.3 % (42.2-75.2); HEMATOCRIT 37.7 % (37.0-47.0); HEMOGLOBIN 12.2 g/dl (12.5-16.0); LYMPH # 2.1 (1.2-3.4); LYMPH % 36.8 % (20.0-51.0); MEAN CELL VOLUME 101 fl (80.0-100.0); MEAN CORPUSCULAR HEMOGLOBIN 33 pg (27.0-31.0); MEAN CORPUSCULAR HGB CONC 32 g/dl (33.0-37.0); MONO # 0.4 (0.1-0.6); MONO % 6.3 % (1.7-9.3); PLATELET COUNT 242 K/mm3 (130-400); RED BLOOD COUNT 3.74 M/mm3 (4.10-5.30); REDCELL DISTRIBUTION WIDTH-CV 19.4 % (11.5-14.5)
[2018-11-02 17:42] LABS: ALANINE AMINOTRANSFERASE 20 U/L (9-52); ALBUMIN 3.3 gm/dL (3.5-5.0); ALKALINE PHOSPHATASE 91 U/L (50-136); ANION GAP 6 mmol/L (7-16); AST,SGOT 30 U/L (15-37); BILIRUBIN,TOTAL 0.5 mg/dL (0.0-1.0); BLOOD UREA NITROGEN 13 mg/dL (7-17); C-REACTIVE PROTEIN < 0.5 mg/dL (0.0-0.9); CALCIUM 7.8 mg/dL (8.4-10.2); CARBON DIOXIDE 24 mmol/L (22-30); CHLORIDE 109 mmol/L (98-107); CREATININE, serum 0.89 mg/dL (0.52-1.25); GLUCOSE 97 mg/dL (74-106); LIPASE 47 U/L (23-300); POTASSIUM 3.9 mmol/L (3.4-5.0); SODIUM 139 mmol/L (137-145); TOTAL PROTEIN 6.5 gm/dL (6.4-8.2)
[2018-11-02 18:32] VITALS: PULSE 85
== END 2018-11-02 18:34 | disposition home or self-care (01) ==
LOC: COL.ER 16:47
PROVIDERS: Emergency Medicine
DX: G89.29 Other chronic pain (principal); R10.12 Left upper quadrant pain; F90.9 Attention-deficit hyperactivity disorder, unspecified type; F32.9 Major depressive disorder, single episode, unspecified; F41.9 Anxiety disorder, unspecified; Z98.84 Bariatric surgery status; Z90.49 Acquired absence of other specified parts of digestive tract; F17.210 Nicotine dependence, cigarettes, uncomplicated
CPT/HCPCS: J2405; J3010; J7030

== ENCOUNTER → 2018-11-18 | Outpatient (REF) ==
[2018-11-18 20:20] LABS: FERRITIN 123 ng/mL (6-137)
[2018-11-19 08:10] LABS: IRON,SERUM 165 ug/dL (35-150)
[2018-11-19 08:20] LABS: TOTAL IRON BINDING CAPACITY 428 ug/dL (265-497)
== END ==
LOC: ZLAB.WCH 19:30
PROVIDERS: Internal Medicine
DX: Z01.89 Encounter for other specified special examinations (principal)

== ENCOUNTER 2018-12-25 14:05 | Outpatient (CLI) | payer MEDICARE, MEDICAID ==
[~2018-12-25] VITALS: Ht 175.3 cm; Wt 121.5 kg
[2018-12-25 15:15] LABS: COLLECTION METHOD CLEAN CATCH
[2018-12-25 15:31] LABS: BASO % 0.4 % (0.0-2.0); EOS # 0.1 (0.0-0.7); EOS % 0.9 % (0-4.0); GRAN # 2.7 (1.4-6.5); GRAN % 48.2 % (42.2-75.2); HEMATOCRIT 42.4 % (37.0-47.0); LYMPH # 2.4 (1.2-3.4); LYMPH % 44.1 % (20.0-51.0); MEAN CELL VOLUME 106 fl (80.0-100.0); MEAN CORPUSCULAR HEMOGLOBIN 35 pg (27.0-31.0); MEAN CORPUSCULAR HGB CONC 33 g/dl (33.0-37.0); MEAN PLATELET VOLUME 9.9 fl (7.4-10.4); MONO # 0.3 (0.1-0.6); MONO % 6.2 % (1.7-9.3); PLATELET COUNT 250 K/mm3 (130-400); RED BLOOD COUNT 4.02 M/mm3 (4.10-5.30); REDCELL DISTRIBUTION WIDTH-CV 14.9 % (11.5-14.5)
[2018-12-25 15:34] LABS: AMORPHOUS CRYSTAL Present /uL; MUCOUS Present /lpf; PH 5 (5-8); URINE APPEARANCE Cloudy; URINE BACTERIA None Seen /hpf; URINE BILIRUBIN Negative (NEGATIVE); URINE BLOOD Negative (NEGATIVE); URINE COLOR Yellow; URINE GLUCOSE Negative (NEGATIVE); URINE KETONE Negative (NEGATIVE); URINE LEUKOCYTE ESTERASE Negative (NEGATIVE); URINE NITRATE Negative (NEGATIVE); URINE PROTEIN(semi-quant) Negative (NEGATIVE); URINE RBC 0-2 /hpf; URINE UROBILINOGEN Negative (NEGATIVE); URINE WBC 0-2 /hpf
[2018-12-25 15:48] LABS: ALBUMIN 3.7 gm/dL (3.5-5.0); BILIRUBIN,TOTAL 0.3 mg/dL (0.0-1.0); CALCIUM 8.6 mg/dL (8.4-10.2); CREATININE, serum 0.66 (0.52-1.25); MAGNESIUM 1.9 mg/dL (1.6-2.3); POTASSIUM 3.9 mmol/L (3.4-5.0); TOTAL PROTEIN 7.3 gm/dL (6.4-8.2)
[2018-12-25 16:00] VITALS: BP 115/78; PULSE 62; TEMP 98.4
[2018-12-25 23:36] LABS: CORTISOL RANDOM 3 ug/dL (3-20); PTH,INTACT 59.6 pg/mL (6.6-88.9)
== END 2018-12-25 17:00 | disposition home or self-care (01) ==
LOC: COL.RAD 14:05 → EUO 14:05
PROVIDERS: Internal Medicine
DX: M51.36 Other intervertebral disc degeneration, lumbar region (principal); E87.6 Hypokalemia; K90.89 Other intestinal malabsorption; N30.00 Acute cystitis without hematuria; E21.3 Hyperparathyroidism, unspecified; D50.9 Iron deficiency anemia, unspecified; Z98.84 Bariatric surgery status
CPT/HCPCS: J2501; J2916; J3420

== ENCOUNTER 2019-01-27 15:41 | Outpatient (CLI) | payer MEDICARE, MEDICAID ==
[~2019-01-27] VITALS: Ht 175.3 cm; Wt 130.2 kg
[2019-01-27] MEDS ORDERED: PROZAC40 MG PO (15:53)
[2019-01-27 16:54] VITALS: BP 156/86; PULSE 101; TEMP 98.4
== END 2019-01-27 17:16 | disposition home or self-care (01) ==
LOC: EUO 15:41
DX: E21.3 Hyperparathyroidism, unspecified (principal); E61.1 Iron deficiency
CPT/HCPCS: J2501; J2916

== ENCOUNTER 2019-02-26 15:50 | Outpatient (CLI) | payer MEDICARE, MEDICAID ==
[~2019-02-26] VITALS: Ht 175.3 cm; Wt 134.9 kg
[2019-02-26 16:00] VITALS: BP 125/55; PULSE 60; TEMP 97.8
[2019-02-26] MEDS ORDERED: XANAX 0.5MG0.5 MG PO (16:38)
== END 2019-02-26 17:45 | disposition home or self-care (01) ==
LOC: EUO 15:50
DX: E61.1 Iron deficiency (principal); E21.3 Hyperparathyroidism, unspecified; E53.8 Deficiency of other specified B group vitamins; Z79.899 Other long term (current) drug therapy
CPT/HCPCS: J2501; J2916; J3420

== ENCOUNTER 2019-03-28 13:03 | Outpatient (CLI) | payer MEDICARE, MEDICAID ==
[~2019-03-28] VITALS: Ht 175.3 cm; Wt 138.0 kg
[2019-03-28 14:00] VITALS: BP 119/57; PULSE 86; TEMP 98.6
[2019-03-28] MEDS ORDERED: MULTI VITAMINS1 TAB PO (14:21)
[2019-03-28] MEDS ORDERED: REMERON 15M15 MG/TA1 PO (14:23)
== END 2019-03-28 15:28 | disposition home or self-care (01) ==
LOC: EUO 13:03
DX: E53.8 Deficiency of other specified B group vitamins (principal); Z79.899 Other long term (current) drug therapy
CPT/HCPCS: J2501; J2916; J3420

== ENCOUNTER → 2019-04-09 | Outpatient (CLI) | payer MEDICARE, MEDICAID ==
[~2019-04-09] MED LIST changes: +REMERON 15M15 MG/TA1 PO
== END ==
LOC: COL.PUL 10:58
DX: R06.02 Shortness of breath (principal); F17.210 Nicotine dependence, cigarettes, uncomplicated

== ENCOUNTER 2019-04-23 14:20 | Emergency (ER) | payer MEDICARE, MEDICAID ==
[~2019-04-23] VITALS: Ht 175.3 cm; Wt 136.4 kg
[2019-04-23 14:24] VITALS: TEMP 99.2
[2019-04-23 14:58] LABS: COLLECTION METHOD CLEAN CATCH
[2019-04-23 15:01] LABS: BASO % 0.2 % (0.0-2.0); EOS % 0.6 % (0-4.0); GRAN # 3.6 (1.4-6.5); GRAN % 65.3 % (42.2-75.2); HEMATOCRIT 41.7 % (37.0-47.0); HEMOGLOBIN 14.4 g/dl (12.5-16.0); LYMPH # 1.4 (1.2-3.4); LYMPH % 26.5 % (20.0-51.0); MEAN CELL VOLUME 108 fl (80.0-100.0); MEAN CORPUSCULAR HEMOGLOBIN 37 pg (27.0-31.0); MEAN CORPUSCULAR HGB CONC 35 g/dl (33.0-37.0); MEAN PLATELET VOLUME 9.5 fl (7.4-10.4); MONO # 0.4 (0.1-0.6); PLATELET COUNT 234 K/mm3 (130-400); RED BLOOD COUNT 3.85 M/mm3 (4.10-5.30); REDCELL DISTRIBUTION WIDTH-CV 11.9 % (11.5-14.5)
[2019-04-23 15:08] LABS: MUCOUS Present /lpf; PH 7 (5-8); SQUAMOUS EPITHELIAL 20-50 /hpf; URINE APPEARANCE Cloudy; URINE BACTERIA Rare /hpf; URINE BILIRUBIN Negative (NEGATIVE); URINE BLOOD Negative (NEGATIVE); URINE COLOR Amber; URINE GLUCOSE Negative (NEGATIVE); URINE KETONE Negative (NEGATIVE); URINE LEUKOCYTE ESTERASE Negative (NEGATIVE); URINE NITRATE Negative (NEGATIVE); URINE PROTEIN(semi-quant) Negative (NEGATIVE)
[2019-04-23 15:14] LABS: ALANINE AMINOTRANSFERASE 14 U/L (9-52); ALBUMIN 3.9 gm/dL (3.5-5.0); ALKALINE PHOSPHATASE 110 U/L (50-136); ANION GAP 9 mmol/L (7-16); AST,SGOT 30 U/L (15-37); BILIRUBIN,TOTAL 1.4 mg/dL (0.0-1.0); BLOOD UREA NITROGEN 8 mg/dL (7-17); CALCIUM 8.5 mg/dL (8.4-10.2); CARBON DIOXIDE 22 mmol/L (22-30); CHLORIDE 107 mmol/L (98-107); CREATININE, serum 0.59 (0.52-1.25); GLUCOSE 90 mg/dL (74-106); LIPASE 19 U/L (23-300); POTASSIUM 3.6 mmol/L (3.4-5.0); SODIUM 138 mmol/L (137-145); TOTAL PROTEIN 7.4 gm/dL (6.4-8.2)
[2019-04-23 15:16] LABS: C-REACTIVE PROTEIN < 0.5 mg/dL (0.0-0.9)
[2019-04-23] MEDS ORDERED: CARAFATE 1GM1 G PO (16:42)
[2019-04-23] MEDS ORDERED: NORCO 325 MG-51 TAB PO (16:54)
[2019-04-23 16:57] VITALS: BP 116/73; PULSE 72
== END 2019-04-23 16:59 | disposition home or self-care (01) ==
LOC: COL.ER 14:20
PROVIDERS: Emergency Medicine; Physician Assistant
DX: R10.12 Left upper quadrant pain (principal); R10.13 Epigastric pain; R11.0 Nausea; G89.18 Other acute postprocedural pain; F17.210 Nicotine dependence, cigarettes, uncomplicated; K21.9 Gastro-esophageal reflux disease without esophagitis; F32.9 Major depressive disorder, single episode, unspecified; F41.9 Anxiety disorder, unspecified; Z90.49 Acquired absence of other specified parts of digestive tract; Z98.84 Bariatric surgery status
CPT/HCPCS: C9113; J2270; J2405; J7030

== ENCOUNTER 2019-04-29 14:37 | Outpatient (CLI) | payer MEDICARE, MEDICAID ==
[~2019-04-29] VITALS: Ht 175.3 cm; Wt 139.7 kg
[2019-04-29 15:25] VITALS: BP 106/76; PULSE 77; TEMP 98.4
[2019-04-29 15:43] VITALS: BP 106/76; PULSE 77; TEMP 98.4
== END 2019-04-29 17:02 | disposition home or self-care (01) ==
LOC: EUO 14:37
DX: E53.8 Deficiency of other specified B group vitamins (principal); E21.3 Hyperparathyroidism, unspecified; E61.1 Iron deficiency; Z79.899 Other long term (current) drug therapy
CPT/HCPCS: J2501; J2916; J3420

== ENCOUNTER 2019-05-06 13:32 | Day surgery (SDC) | payer MEDICARE, MEDICAID ==
[~2019-05-06] VITALS: Ht 175.3 cm; Wt 142.2 kg
[2019-05-06 14:00] VITALS: BP 122/92; PULSE 93; TEMP 98.6
[2019-05-06 15:25] VITALS: BP 107/73; PULSE 84; TEMP 97.8
--- NOTE | 2019-05-06 15:25 | NUR ---
TO [facility] PER CART FROM ENDOSCOPY. AMBULATED TO RECLINER WITH 2 ASSIST AND TOLERATED WELL. RECEIVED WATER LEGS ELEVATED PER PATIENT REQUEST.
[2019-05-06 15:40] VITALS: BP 104/83; PULSE 87
[2019-05-06 15:45] VITALS: BP 113/84; PULSE 87
--- NOTE | 2019-05-06 15:45 | NUR ---
DR ASIF INTO TALK WITH PATIENT. FOLLOW UP NEEDED
--- NOTE | 2019-05-06 15:55 | NUR ---
RECEIVED DISCHARGE INSTRUCTIONS AND VERBALIZED UNDERSTANDING DISCONTINUED IV AND INT- CATHETER INTACT. PATIENT CALLED MOTHER FOR RIDE HOME. PATIENT GETTING DRESSED.
--- NOTE | 2019-05-06 16:10 | NUR ---
DISCHARGED PER WC BY NURSING STAFF TO PRIVATE CAR IN CARE OF MOTHER - WANDA
== END 2019-05-06 16:19 | disposition home or self-care (01) ==
LOC: SDCO 13:32
DX: K31.89 Other diseases of stomach and duodenum (principal); K56.699 Other intestinal obstruction unspecified as to partial versus complete obstruction; K91.89 Other postprocedural complications and disorders of digestive system; R68.81 Early satiety; G47.33 Obstructive sleep apnea (adult) (pediatric); K21.9 Gastro-esophageal reflux disease without esophagitis; G89.29 Other chronic pain; G43.909 Migraine, unspecified, not intractable, without status migrainosus; R09.02 Hypoxemia; R10.13 Epigastric pain; R20.2 Paresthesia of skin; F41.9 Anxiety disorder, unspecified; F32.9 Major depressive disorder, single episode, unspecified; Z98.84 Bariatric surgery status; Z87.19 Personal history of other diseases of the digestive system; Z88.8 Allergy status to other drugs, medicaments and biological substances; Z91.09 Other allergy status, other than to drugs and biological substances; Z79.899 Other long term (current) drug therapy
CPT/HCPCS: C1726; J2704; J7120

== ENCOUNTER 2019-05-27 14:54 | Outpatient (CLI) | payer MEDICARE, MEDICAID ==
[~2019-05-27] VITALS: Ht 175.3 cm; Wt 116.3 kg
[2019-05-27 15:40] VITALS: BP 168/82; PULSE 99; TEMP 98.1
== END 2019-05-27 16:36 | disposition home or self-care (01) ==
LOC: EUO 14:54
DX: E53.8 Deficiency of other specified B group vitamins (principal)
CPT/HCPCS: J2501; J2916; J3420

== ENCOUNTER 2019-06-27 14:05 | Outpatient (CLI) | payer MEDICARE, MEDICAID ==
[~2019-06-27] VITALS: Ht 175.3 cm; Wt 143.0 kg
[2019-06-27 16:40] VITALS: BP 115/88; PULSE 88; TEMP 98.4
[2019-06-27 17:20] VITALS: BP 120/85; PULSE 90
== END 2019-06-27 17:30 | disposition home or self-care (01) ==
LOC: EUO 14:05
DX: D50.9 Iron deficiency anemia, unspecified (principal); E53.8 Deficiency of other specified B group vitamins
CPT/HCPCS: J2501; J2916; J3420

== ENCOUNTER → 2019-07-28 | Outpatient (CLI) | payer MEDICARE, MEDICAID ==
[~2019-07-28] VITALS: Ht 175.3 cm; Wt 144.0 kg
[2019-07-28 15:00] VITALS: BP 120/80; PULSE 78; TEMP 97.9
== END ==
LOC: EUO 07-25 15:00
DX: E53.8 Deficiency of other specified B group vitamins (principal)
CPT/HCPCS: J2501; J2916; J3420

== ENCOUNTER 2019-08-25 14:51 | Outpatient (CLI) | payer MEDICARE, MEDICAID ==
[~2019-08-25] VITALS: Ht 175.3 cm; Wt 145.0 kg
[2019-08-25 15:04] VITALS: BP 122/91; PULSE 89; TEMP 98.3
== END 2019-08-25 17:02 | disposition home or self-care (01) ==
LOC: EUO 14:51
DX: E61.1 Iron deficiency (principal); E53.8 Deficiency of other specified B group vitamins
CPT/HCPCS: J2501; J2916; J3420

== ENCOUNTER 2019-09-02 09:53 | Emergency (ER) | payer MEDICARE, MEDICAID ==
[~2019-09-02] VITALS: Ht 175.3 cm; Wt 143.2 kg
[2019-09-02 10:05] VITALS: BP 109/64; TEMP 98.7
[2019-09-02 12:29] VITALS: PULSE 93
[2019-09-02] MEDS ORDERED: FLAGYL500 MG PO (12:31)
[2019-09-02] MEDS ORDERED: CIPRO 500MG TA500 MG PO (12:31)
[2019-09-03] MEDS ORDERED: TYLENOL W/COD1 UDTAB PO (02:50)
== END 2019-09-02 12:29 | disposition home or self-care (01) ==
LOC: COL.ER 09:53
DX: S31.811A Laceration without foreign body of right buttock, initial encounter (principal); J06.9 Acute upper respiratory infection, unspecified; Z90.89 Acquired absence of other organs; Z98.84 Bariatric surgery status; F90.9 Attention-deficit hyperactivity disorder, unspecified type; F32.9 Major depressive disorder, single episode, unspecified; F41.9 Anxiety disorder, unspecified; F17.210 Nicotine dependence, cigarettes, uncomplicated; W19.XXXA Unspecified fall, initial encounter; Z23 Encounter for immunization

== ENCOUNTER 2019-09-03 02:24 | Emergency (ER) | payer MEDICARE, MEDICAID ==
[~2019-09-03] VITALS: Ht 175.3 cm; Wt 143.2 kg
[2019-09-03] MEDS ORDERED: TYLENOL W/COD1 UDTAB PO (02:50)
[2019-09-03 03:01] VITALS: BP 117/83; PULSE 108; TEMP 97.8
== END 2019-09-03 03:05 | disposition home or self-care (01) ==
LOC: COL.ER 02:24
DX: G89.18 Other acute postprocedural pain (principal); K21.9 Gastro-esophageal reflux disease without esophagitis; F17.210 Nicotine dependence, cigarettes, uncomplicated; Z98.84 Bariatric surgery status

== ENCOUNTER → 2019-09-16 | Outpatient (CLI) | payer MEDICARE, MEDICAID ==
[~2019-09-16] MED LIST changes: +TYLENOL W/COD1 UDTAB PO
[2019-09-16 15:00] VITALS: BP 128/83; PULSE 92; TEMP 97.2
== END ==
LOC: COL.ER 14:46
DX: S31.811A Laceration without foreign body of right buttock, initial encounter (principal); X58.XXXA Exposure to other specified factors, initial encounter

== ENCOUNTER 2019-09-23 11:12 | Outpatient (CLI) | payer MEDICARE, MEDICAID ==
[~2019-09-23] VITALS: Ht 175.3 cm; Wt 148.7 kg
[2019-09-23 11:49] VITALS: BP 119/94; PULSE 97; TEMP 97.7
== END 2019-09-23 13:10 | disposition home or self-care (01) ==
LOC: EUO 11:12
DX: E21.3 Hyperparathyroidism, unspecified (principal); Z79.899 Other long term (current) drug therapy
CPT/HCPCS: J2501; J2916; J3420

== ENCOUNTER 2019-10-03 14:43 | Emergency (ER) | payer MEDICARE, MEDICAID ==
[~2019-10-03] VITALS: Ht 175.3 cm; Wt 143.2 kg
[2019-10-03 14:53] VITALS: BP 130/75; PULSE 103
[2019-10-03] MEDS ORDERED: CELEBREX 200MG200 MG PO (15:51)
[2019-10-03] MEDS ORDERED: ALDACTONE 25MG25 M1 PO (15:52)
[2019-10-03] MEDS ORDERED: FLEXERIL 1010 MG/TAB PO (16:45)
[2019-10-03] MEDS ORDERED: LIDODERM 5% PATC1 EA TP (16:45)
[2019-10-03 17:12] VITALS: TEMP 98
== END 2019-10-03 17:17 | disposition home or self-care (01) ==
LOC: COL.ER 14:43
DX: S39.012A Strain of muscle, fascia and tendon of lower back, initial encounter (principal); F32.9 Major depressive disorder, single episode, unspecified; F41.9 Anxiety disorder, unspecified; F17.210 Nicotine dependence, cigarettes, uncomplicated; Z90.89 Acquired absence of other organs; W01.198A Fall on same level from slipping, tripping and stumbling with subsequent striking against other object, initial encounter

== ENCOUNTER 2019-10-21 14:54 | Outpatient (CLI) | payer MEDICARE, MEDICAID ==
[~2019-10-21] VITALS: Ht 175.3 cm; Wt 146.6 kg
[~2019-10-21 14:54] MED LIST changes: +ALDACTONE 25MG25 M1 PO; +CELEBREX 200MG200 MG PO; +LIDODERM 5% PATC1 EA TP
[2019-10-21 15:30] VITALS: BP 115/82; PULSE 99; TEMP 98
== END 2019-10-21 16:50 | disposition home or self-care (01) ==
LOC: EUO 14:54
DX: D50.9 Iron deficiency anemia, unspecified (principal); E21.3 Hyperparathyroidism, unspecified
CPT/HCPCS: J2501; J2916; J3420

== ENCOUNTER 2019-12-13 17:28 | Emergency (ER) | payer MEDICARE, MEDICAID ==
[~2019-12-13] VITALS: Ht 175.3 cm; Wt 143.2 kg
[~2019-12-13 17:28] MED LIST changes: +VIRTUSSIN
[2019-12-13 17:36] VITALS: BP 125/80; TEMP 98.3
[2019-12-13 18:26] VITALS: PULSE 102
== END 2019-12-13 18:26 | disposition home or self-care (01) ==
LOC: COL.ER 17:28
DX: S49.92XA Unspecified injury of left shoulder and upper arm, initial encounter (principal); W01.0XXA Fall on same level from slipping, tripping and stumbling without subsequent striking against object, initial encounter; Y92.009 Unspecified place in unspecified non-institutional (private) residence as the place of occurrence of the external cause

== ENCOUNTER 2019-12-30 14:51 | Outpatient (CLI) | payer MEDICARE, MEDICAID ==
[~2019-12-30] VITALS: Ht 175.3 cm; Wt 153.5 kg
[2019-12-30 15:20] VITALS: BP 117/82; PULSE 94; TEMP 98.2
== END 2019-12-30 17:01 | disposition home or self-care (01) ==
LOC: EUO 14:51
DX: E61.1 Iron deficiency (principal); E21.3 Hyperparathyroidism, unspecified
CPT/HCPCS: J2501; J2916; J3420

== ENCOUNTER → 2019-12-31 | Outpatient (CLI) | payer MEDICARE, MEDICAID | LOC: COL.RAD 12-30 08:15 | DX: S42.255A Nondisplaced fracture of greater tuberosity of left humerus, initial encounter for closed fracture (principal) ==

== ENCOUNTER 2020-01-27 14:55 | Outpatient (CLI) | payer MEDICARE, MEDICAID ==
[2020-01-27 16:21] VITALS: BP 121/96; PULSE 101; TEMP 98.6
[2020-01-27] MEDS ORDERED: ULTRAM 50MG TAB50 MG PO (17:08)
== END 2020-01-27 18:43 | disposition home or self-care (01) ==
LOC: EUO 14:55
DX: E61.1 Iron deficiency (principal); E21.3 Hyperparathyroidism, unspecified
CPT/HCPCS: J2501; J2916; J3420

== ENCOUNTER 2020-02-26 14:36 | Outpatient (CLI) | payer MEDICARE, MEDICAID ==
[~2020-02-26] VITALS: Ht 175.3 cm; Wt 154.7 kg
[2020-02-26 15:30] VITALS: BP 115/91; BP 135/84; PULSE 74; PULSE 96; TEMP 97.7; TEMP 97.8
== END 2020-02-26 16:58 | disposition home or self-care (01) ==
LOC: EUO 14:36
DX: Z79.899 Other long term (current) drug therapy (principal)
CPT/HCPCS: J2501; J2916; J3420

== ENCOUNTER 2020-03-31 15:01 | Outpatient (CLI) | payer MEDICARE, MEDICAID ==
--- NOTE | 2020-03-24 11:04 | NUR ---
SPOKE WITH PT. ID SCREENING FLAGS. SPOKE WITH CHRISTOPHE, COOKING CHEF AT DR WHITE'S OFFICE. CHRISTOPHE STATED PT HAD A TELE HEALTH APPT ON 03/18 AND CONFUSED TO WHY PT DID NOT ATTEND IF HAVING SYMPTOMS. CHRISTOPHE ENCOURAGED THIS RN TO TELL PT TO CALL THE GABRIEL NURSE AT THE [facility] APPT. THIS RN CALLED PT WITH ABOVE INFORMATION AND STATED WE WILL RESCHEDULE HER ON THE . ENCOURAGED PT TO CALL BACK IF WE CAN SEE HER SOONER. PT AWARE.
[~2020-03-31] VITALS: Ht 175.3 cm; Wt 156.0 kg
[2020-03-31 16:12] LABS: BASO % 0.2 % (0.0-2.0); EOS % 0.6 % (0-4.0); GRAN % 62.1 % (42.2-75.2); HEMATOCRIT 42.1 % (37.0-47.0); HEMOGLOBIN 14.6 g/dl (12.5-16.0); LYMPH # 1.4 (1.2-3.4); LYMPH % 28.2 % (20.0-51.0); MEAN CELL VOLUME 113 fl (80.0-100.0); MEAN CORPUSCULAR HEMOGLOBIN 39 pg (27.0-31.0); MEAN CORPUSCULAR HGB CONC 35 g/dl (33.0-37.0); MEAN PLATELET VOLUME 10.4 fl (7.4-10.4); MONO # 0.4 (0.1-0.6); MONO % 8.7 % (1.7-9.3); PLATELET COUNT 221 K/mm3 (130-400); RED BLOOD COUNT 3.74 M/mm3 (4.10-5.30); REDCELL DISTRIBUTION WIDTH-CV 12.5 % (11.5-14.5)
[2020-03-31 16:37] VITALS: BP 115/70; PULSE 90; TEMP 98
[2020-03-31 16:52] LABS: ALBUMIN 3.7 gm/dL (3.5-5.0); BILIRUBIN,TOTAL 0.7 mg/dL (0.0-1.0); CALCIUM 8.7 mg/dL (8.4-10.2); CREATININE, serum 0.71 (0.52-1.25); MAGNESIUM 1.9 mg/dL (1.6-2.3); POTASSIUM 3.7 mmol/L (3.4-5.0); TOTAL PROTEIN 7.2 gm/dL (6.4-8.2)
== END 2020-03-31 17:20 | disposition home or self-care (01) ==
LOC: EUO 15:01
PROVIDERS: Internal Medicine
DX: E21.3 Hyperparathyroidism, unspecified (principal); E61.1 Iron deficiency
CPT/HCPCS: J2501; J2916; J3420

== ENCOUNTER 2020-04-30 10:56 | Outpatient (CLI) | payer MEDICARE, MEDICAID ==
[2020-04-30 11:45] VITALS: BP 114/80; PULSE 102; TEMP 98.5
[2020-04-30] MEDS ORDERED: REGLAN 5MG T5 MG/TAB PO (13:04)
== END 2020-04-30 14:26 | disposition home or self-care (01) ==
LOC: EUO 10:56
DX: E21.3 Hyperparathyroidism, unspecified (principal); E61.1 Iron deficiency; Z79.899 Other long term (current) drug therapy
CPT/HCPCS: J2501; J2916; J3420

== ENCOUNTER 2020-06-08 16:24 | Outpatient (CLI) | payer MEDICARE, MEDICAID ==
[~2020-06-08] VITALS: Ht 175.3 cm; Wt 161.2 kg
[~2020-06-08 16:24] MED LIST changes: +REGLAN 5MG T5 MG/TAB PO
[2020-06-08 17:11] LABS: BASO % 0.2 % (0.0-2.0); EOS % 0.8 % (0-4.0); GRAN # 2.6 (1.4-6.5); GRAN % 50.3 % (42.2-75.2); HEMATOCRIT 43.9 % (37.0-47.0); HEMOGLOBIN 15.3 g/dl (12.5-16.0); LYMPH # 2.2 (1.2-3.4); LYMPH % 42.2 % (20.0-51.0); MEAN CELL VOLUME 113 fl (80.0-100.0); MEAN CORPUSCULAR HEMOGLOBIN 39 pg (27.0-31.0); MEAN CORPUSCULAR HGB CONC 35 g/dl (33.0-37.0); MEAN PLATELET VOLUME 9.9 fl (7.4-10.4); MONO # 0.3 (0.1-0.6); MONO % 6.3 % (1.7-9.3); PLATELET COUNT 249 K/mm3 (130-400); REDCELL DISTRIBUTION WIDTH-CV 12.8 % (11.5-14.5)
[2020-06-08 17:22] LABS: CALCIUM 8.8 mg/dL (8.4-10.2); CREATININE, serum 0.62 (0.52-1.25); MAGNESIUM 1.8 mg/dL (1.6-2.3); POTASSIUM 3.1 mmol/L (3.4-5.0); TOTAL PROTEIN 7.5 gm/dL (6.4-8.2)
[2020-06-08 17:55] VITALS: BP 136/105; PULSE 97; TEMP 98.5
[2020-06-12 14:30] LABS: VITAMIN B1 99 nmol/L (70-180)
[2020-06-15 08:56] LABS: VITAMIN K 0.21 ng/mL (())
== END 2020-06-08 17:55 | disposition home or self-care (01) ==
LOC: EUO 16:24
PROVIDERS: Internal Medicine
DX: E21.3 Hyperparathyroidism, unspecified (principal); K90.89 Other intestinal malabsorption; E87.6 Hypokalemia; D50.9 Iron deficiency anemia, unspecified; R07.89 Other chest pain; Z98.84 Bariatric surgery status
CPT/HCPCS: J2501; J2916; J3420

== ENCOUNTER 2020-06-11 12:53 | Emergency (ER) | payer MEDICARE, MEDICAID ==
[~2020-06-11] VITALS: Ht 175.3 cm; Wt 150.0 kg
[2020-06-11 14:12] LABS: BASO % 0.2 % (0.0-2.0); EOS # 0.1 (0.0-0.7); EOS % 1.2 % (0-4.0); GRAN # 2.8 (1.4-6.5); GRAN % 58.8 % (42.2-75.2); HEMATOCRIT 42.8 % (37.0-47.0); LYMPH # 1.5 (1.2-3.4); LYMPH % 31.8 % (20.0-51.0); MEAN CELL VOLUME 111 fl (80.0-100.0); MEAN CORPUSCULAR HEMOGLOBIN 39 pg (27.0-31.0); MEAN CORPUSCULAR HGB CONC 35 g/dl (33.0-37.0); MEAN PLATELET VOLUME 9.9 fl (7.4-10.4); MONO # 0.4 (0.1-0.6); MONO % 7.6 % (1.7-9.3); PLATELET COUNT 236 K/mm3 (130-400); RED BLOOD COUNT 3.85 M/mm3 (4.10-5.30); REDCELL DISTRIBUTION WIDTH-CV 12.8 % (11.5-14.5)
[2020-06-11 14:26] LABS: BILIRUBIN,TOTAL 2.4 mg/dL (0.0-1.0); C-REACTIVE PROTEIN 0.7 mg/dL (0.0-0.9); CALCIUM 8.6 mg/dL (8.4-10.2); CREATININE, serum 0.59 (0.52-1.25); POTASSIUM 3.2 mmol/L (3.4-5.0); TOTAL PROTEIN 7.5 gm/dL (6.4-8.2)
[2020-06-11 15:06] LABS: COLLECTION METHOD CLEAN CATCH
[2020-06-11 15:22] LABS: AMORPHOUS CRYSTAL Present /uL; MUCOUS Present /lpf; PH 6 (5-8); SQUAMOUS EPITHELIAL 20-50 /hpf; URINE APPEARANCE Cloudy; URINE BACTERIA Moderate /hpf; URINE BILIRUBIN Positive (NEGATIVE); URINE BLOOD Negative (NEGATIVE); URINE COLOR Amber; URINE GLUCOSE Negative (NEGATIVE); URINE KETONE Negative (NEGATIVE); URINE LEUKOCYTE ESTERASE Trace (NEGATIVE); URINE NITRATE Negative (NEGATIVE); URINE PROTEIN(semi-quant) 2+ (NEGATIVE); URINE UROBILINOGEN >=4.0 mg/dL (NEGATIVE)
[2020-06-11 18:15] VITALS: BP 140/70; PULSE 88; TEMP 98
== END 2020-06-11 18:15 | disposition home or self-care (01) ==
LOC: COL.ER 12:53
PROVIDERS: Family Medicine
DX: M54.9 Dorsalgia, unspecified (principal); Z88.6 Allergy status to analgesic agent; Z88.8 Allergy status to other drugs, medicaments and biological substances; Z98.84 Bariatric surgery status
CPT/HCPCS: A9585; J2405; J3010; J7120

== ENCOUNTER 2020-07-14 15:58 | Outpatient (CLI) | payer MEDICARE, MEDICAID ==
[~2020-07-14] VITALS: Ht 175.3 cm; Wt 156.5 kg
[2020-07-14 16:56] VITALS: BP 108/84; PULSE 95; TEMP 98.4
[2020-07-14 17:06] LABS: BASO % 0.4 % (0.0-2.0); EOS % 0.4 % (0-4.0); GRAN # 3.5 (1.4-6.5); GRAN % 65.4 % (42.2-75.2); HEMATOCRIT 46.2 % (37.0-47.0); HEMOGLOBIN 16.1 g/dl (12.5-16.0); LYMPH # 1.4 (1.2-3.4); LYMPH % 26.5 % (20.0-51.0); MEAN CELL VOLUME 110 fl (80.0-100.0); MEAN CORPUSCULAR HEMOGLOBIN 38 pg (27.0-31.0); MEAN CORPUSCULAR HGB CONC 35 g/dl (33.0-37.0); MEAN PLATELET VOLUME 10.4 fl (7.4-10.4); MONO # 0.4 (0.1-0.6); MONO % 6.9 % (1.7-9.3); PLATELET COUNT 248 K/mm3 (130-400); RED BLOOD COUNT 4.21 M/mm3 (4.10-5.30); REDCELL DISTRIBUTION WIDTH-CV 12.8 % (11.5-14.5)
[2020-07-14 18:49] LABS: ALBUMIN 4.1 gm/dL (3.5-5.0); BILIRUBIN,TOTAL 1.9 mg/dL (0.0-1.0); CALCIUM 8.5 mg/dL (8.4-10.2); CREATININE, serum 0.59 (0.52-1.25); MAGNESIUM 1.8 mg/dL (1.6-2.3); POTASSIUM 3.1 mmol/L (3.4-5.0); TOTAL PROTEIN 7.8 gm/dL (6.4-8.2)
[2020-07-14 18:58] LABS: IRON,SERUM 289 ug/dL (35-150)
[2020-07-14 19:11] LABS: TOTAL IRON BINDING CAPACITY 294 ug/dL (265-497)
== END 2020-07-14 18:00 | disposition home or self-care (01) ==
LOC: EUO 15:58
PROVIDERS: Internal Medicine
DX: Z01.89 Encounter for other specified special examinations (principal)
CPT/HCPCS: J2501; J2916; J3420

== ENCOUNTER 2020-08-27 16:03 | Outpatient (CLI) | payer MEDICARE, MEDICAID ==
[2020-08-27 17:19] LABS: BASO % 0.3 % (0.0-2.0); EOS % 0.3 % (0-4.0); GRAN # 4.3 (1.4-6.5); HEMATOCRIT 42.3 % (37.0-47.0); HEMOGLOBIN 14.4 g/dl (12.5-16.0); LYMPH # 1.6 (1.2-3.4); LYMPH % 24.6 % (20.0-51.0); MEAN CELL VOLUME 115 fl (80.0-100.0); MEAN CORPUSCULAR HEMOGLOBIN 39 pg (27.0-31.0); MEAN CORPUSCULAR HGB CONC 34 g/dl (33.0-37.0); MEAN PLATELET VOLUME 9.5 fl (7.4-10.4); MONO # 0.4 (0.1-0.6); MONO % 6.5 % (1.7-9.3); PLATELET COUNT 225 K/mm3 (130-400); RED BLOOD COUNT 3.68 M/mm3 (4.10-5.30); REDCELL DISTRIBUTION WIDTH-CV 13.8 % (11.5-14.5)
[2020-08-27 17:26] VITALS: BP 117/95; PULSE 97; TEMP 96.9
[2020-08-27 17:33] LABS: CALCIUM 8.9 mg/dL (8.4-10.2); CREATININE, serum 0.61 (0.52-1.25); IRON,SERUM 141 ug/dL (35-150); MAGNESIUM 2.1 mg/dL (1.6-2.3); TOTAL PROTEIN 7.8 gm/dL (6.4-8.2)
[2020-08-27 17:42] LABS: TOTAL IRON BINDING CAPACITY 339 ug/dL (265-497)
--- NOTE | 2020-08-27 18:33 | NUR ---
INT DC'd with catheter intact. Pt assisted out to car by wheelchair.
[2020-09-02 21:23] LABS: VITAMIN B1 113 nmol/L (70-180)
== END 2020-08-27 18:33 | disposition home or self-care (01) ==
LOC: EUO 16:03
PROVIDERS: Internal Medicine
DX: E21.3 Hyperparathyroidism, unspecified (principal); K90.9 Intestinal malabsorption, unspecified; E61.1 Iron deficiency; R73.03 Prediabetes
CPT/HCPCS: J2501; J2916; J3420

== ENCOUNTER 2020-10-12 14:51 | Outpatient (CLI) | payer MEDICARE, MEDICAID ==
[~2020-10-12] VITALS: Ht 175.3 cm; Wt 171.0 kg
[2020-10-12 15:00] VITALS: BP 112/82; PULSE 97; TEMP 98.4
[2020-10-12 15:28] LABS: IRON,SERUM 177 ug/dL (35-150)
[2020-10-12 15:32] LABS: ALBUMIN 3.5 gm/dL (3.5-5.0); BILIRUBIN,TOTAL 1.3 mg/dL (0.0-1.0); CALCIUM 8.2 mg/dL (8.4-10.2); CREATININE, serum 0.61 (0.52-1.25); MAGNESIUM 1.8 mg/dL (1.6-2.3); POTASSIUM 3.1 mmol/L (3.4-5.0); TOTAL PROTEIN 7.1 gm/dL (6.4-8.2)
[2020-10-12 15:42] LABS: TOTAL IRON BINDING CAPACITY 286 ug/dL (265-497)
[2020-10-15 08:44] LABS: VITAMIN K 0.12 ng/mL (())
[2020-10-18 11:17] LABS: VITAMIN B1 90 nmol/L (70-180)
[2020-10-20 10:24] LABS: VITAMIN C XXX
== END 2020-10-12 16:38 | disposition home or self-care (01) ==
LOC: EUO 14:51
PROVIDERS: Internal Medicine
DX: E21.3 Hyperparathyroidism, unspecified (principal); E61.1 Iron deficiency
CPT/HCPCS: J2501; J2916; J3420

== ENCOUNTER 2020-11-09 15:00 | Outpatient (CLI) | payer MEDICARE, MEDICAID ==
[~2020-11-09] VITALS: Ht 175.3 cm; Wt 161.5 kg
[2020-11-09 15:33] LABS: IRON,SERUM 125 ug/dL (35-150)
[2020-11-09 15:35] LABS: ALBUMIN 3.2 gm/dL (3.5-5.0); BILIRUBIN,TOTAL 0.6 mg/dL (0.0-1.0); CALCIUM 8.2 mg/dL (8.4-10.2); CREATININE, serum 0.55 (0.52-1.25); POTASSIUM 3.4 mmol/L (3.4-5.0); TOTAL PROTEIN 6.9 gm/dL (6.4-8.2)
[2020-11-09 15:38] LABS: BASO % 0.4 % (0.0-2.0); EOS % 0.6 % (0-4.0); GRAN # 2.7 (1.4-6.5); GRAN % 54.4 % (42.2-75.2); HEMATOCRIT 42.5 % (37.0-47.0); HEMOGLOBIN 14.4 g/dl (12.5-16.0); LYMPH # 1.8 (1.2-3.4); LYMPH % 37.3 % (20.0-51.0); MEAN CELL VOLUME 112 fl (80.0-100.0); MEAN CORPUSCULAR HEMOGLOBIN 38 pg (27.0-31.0); MEAN CORPUSCULAR HGB CONC 34 g/dl (33.0-37.0); MEAN PLATELET VOLUME 9.9 fl (7.4-10.4); MONO # 0.4 (0.1-0.6); MONO % 7.1 % (1.7-9.3); PLATELET COUNT 253 K/mm3 (130-400); RED BLOOD COUNT 3.78 M/mm3 (4.10-5.30)
[2020-11-09 15:42] LABS: TOTAL IRON BINDING CAPACITY 294 ug/dL (265-497)
[2020-11-09 16:13] VITALS: BP 148/72; PULSE 101; TEMP 98.7
[2020-11-11 12:53] LABS: VITAMIN C XXX
[2020-11-12 10:30] LABS: VITAMIN K 0.19 ng/mL (())
[2020-11-13 14:04] LABS: VITAMIN B1 97 nmol/L (70-180)
== END 2020-11-09 16:18 | disposition home or self-care (01) ==
LOC: EUO 15:00
PROVIDERS: Internal Medicine
DX: E61.1 Iron deficiency (principal); E21.3 Hyperparathyroidism, unspecified; R73.03 Prediabetes; K90.9 Intestinal malabsorption, unspecified
CPT/HCPCS: J1756; J2501; J3420

== ENCOUNTER 2020-11-10 15:49 | Emergency (ER) | payer MEDICARE, MEDICAID ==
[~2020-11-10] VITALS: Ht 175.3 cm; Wt 159.1 kg
[2020-11-10 15:55] VITALS: TEMP 98.3
[2020-11-10 16:52] LABS: COLLECTION METHOD CLEAN CATCH
[2020-11-10 17:06] LABS: BASO % 0.2 % (0.0-2.0); EOS % 0.4 % (0-4.0); GRAN # 2.3 (1.4-6.5); GRAN % 49.5 % (42.2-75.2); HEMATOCRIT 44.4 % (37.0-47.0); HEMOGLOBIN 15.1 g/dl (12.5-16.0); LYMPH % 42.9 % (20.0-51.0); MEAN CELL VOLUME 113 fl (80.0-100.0); MEAN CORPUSCULAR HEMOGLOBIN 39 pg (27.0-31.0); MEAN CORPUSCULAR HGB CONC 34 g/dl (33.0-37.0); MEAN PLATELET VOLUME 10.1 fl (7.4-10.4); MONO # 0.3 (0.1-0.6); MONO % 6.8 % (1.7-9.3); PLATELET COUNT 262 K/mm3 (130-400); RED BLOOD COUNT 3.92 M/mm3 (4.10-5.30); REDCELL DISTRIBUTION WIDTH-CV 12.2 % (11.5-14.5)
[2020-11-10 17:14] LABS: MUCOUS Present /lpf; PH 6 (5-8); URINE APPEARANCE Cloudy; URINE BACTERIA Rare /hpf; URINE BILIRUBIN Negative (NEGATIVE); URINE BLOOD Negative (NEGATIVE); URINE COLOR Yellow; URINE GLUCOSE Negative (NEGATIVE); URINE KETONE Negative (NEGATIVE); URINE LEUKOCYTE ESTERASE Negative (NEGATIVE); URINE NITRATE Negative (NEGATIVE); URINE PROTEIN(semi-quant) Negative (NEGATIVE); URINE UROBILINOGEN Negative (NEGATIVE)
[2020-11-10 17:15] LABS: ALBUMIN 3.6 gm/dL (3.5-5.0); BILIRUBIN,TOTAL 0.6 mg/dL (0.0-1.0); C-REACTIVE PROTEIN 1.8 mg/dL (0.0-0.9); CALCIUM 8.4 mg/dL (8.4-10.2); CREATININE, serum 0.62 (0.52-1.25); POTASSIUM 3.3 mmol/L (3.4-5.0); TOTAL PROTEIN 7.6 gm/dL (6.4-8.2)
[2020-11-10 19:16] VITALS: BP 126/63; PULSE 91
== END 2020-11-10 19:29 | disposition home or self-care (01) ==
LOC: COL.ER 15:49
PROVIDERS: Nurse Practitioner Primary Care
DX: R10.11 Right upper quadrant pain (principal); J45.909 Unspecified asthma, uncomplicated; F32.9 Major depressive disorder, single episode, unspecified; F41.9 Anxiety disorder, unspecified; F90.9 Attention-deficit hyperactivity disorder, unspecified type; F42.9 Obsessive-compulsive disorder, unspecified; F17.210 Nicotine dependence, cigarettes, uncomplicated; Z90.49 Acquired absence of other specified parts of digestive tract; Z98.84 Bariatric surgery status; Z88.6 Allergy status to analgesic agent; Z82.49 Family history of ischemic heart disease and other diseases of the circulatory system
CPT/HCPCS: J0595; J2405; J2550; J7030; Q9967

== ENCOUNTER 2021-01-03 13:46 | Inpatient (IN) | payer MEDICARE, MEDICAID ==
[~2021-01-03] VITALS: Ht 175.3 cm; Wt 159.1 kg
[2021-01-03 14:52] LABS: BASO % 0.4 % (0.0-2.0); EOS % 0.4 % (0-4.0); GRAN # 3.5 (1.4-6.5); GRAN % 68.2 % (42.2-75.2); HEMATOCRIT 42.5 % (37.0-47.0); HEMOGLOBIN 14.8 g/dl (12.5-16.0); LYMPH # 1.2 (1.2-3.4); LYMPH % 24.5 % (20.0-51.0); MEAN CELL VOLUME 108 fl (80.0-100.0); MEAN CORPUSCULAR HEMOGLOBIN 38 pg (27.0-31.0); MEAN CORPUSCULAR HGB CONC 35 g/dl (33.0-37.0); MEAN PLATELET VOLUME 10.7 fl (7.4-10.4); MONO # 0.3 (0.1-0.6); MONO % 6.1 % (1.7-9.3); PLATELET COUNT 203 K/mm3 (130-400); RED BLOOD COUNT 3.93 M/mm3 (4.10-5.30); REDCELL DISTRIBUTION WIDTH-CV 13.8 % (11.5-14.5)
[2021-01-03 15:01] LABS: INR 1.1 (0.8-3.0); PROTHROMBIN TIME 11.7 SECONDS (9.7-12.8)
[2021-01-03 15:04] LABS: PARTIAL THROMBOPLASTIN TIME 27.7 SECONDS (26.0-37.0)
[2021-01-03 15:06] LABS: ALBUMIN 3.8 gm/dL (3.5-5.0); BILIRUBIN,TOTAL 1.1 mg/dL (0.0-1.0); C-REACTIVE PROTEIN 3.6 mg/dL (0.0-0.9); CALCIUM 8.2 mg/dL (8.4-10.2); CREATININE, serum 0.64 (0.52-1.25); TOTAL PROTEIN 7.6 gm/dL (6.4-8.2)
[2021-01-03 15:12] LABS: POTASSIUM 2.5 mmol/L (3.4-5.0)
[2021-01-03 15:14] LABS: TROPONIN-I 0.013 ng/mL (0.000-0.035)
[2021-01-03 16:42] LABS: COLLECTION METHOD CLEAN CATCH
[2021-01-03 17:10] LABS: BUDDING YEAST Present /hpf; MUCOUS Present /lpf; PH 5 (5-8); SQUAMOUS EPITHELIAL 20-50 /hpf; URINE APPEARANCE Turbid; URINE BACTERIA Occasional /hpf; URINE BILIRUBIN Positive (NEGATIVE); URINE BLOOD Negative (NEGATIVE); URINE COLOR Amber; URINE GLUCOSE Negative (NEGATIVE); URINE KETONE Negative (NEGATIVE); URINE LEUKOCYTE ESTERASE 2+ (NEGATIVE); URINE NITRATE Negative (NEGATIVE); URINE PROTEIN(semi-quant) 2+ (NEGATIVE); URINE RBC 20-50 /hpf; URINE UROBILINOGEN >=4.0 mg/dL (NEGATIVE)
[2021-01-03] MEDS ORDERED: CIPRO 250MG TA250 MG PO (19:06)
[2021-01-04] VITALS (7 sets, daily range): BP systolic 90–145; BP diastolic 48–78; PULSE 84–109; TEMP 97.9–98.8
--- NOTE | 2021-01-04 01:10 | NUR ---
Patient transferred to medical floor room 318 from ER via wheelchair around 1999. Patient A/Ox4. Patient reports pain to her right lower abdomen area 01/27. Patient denies N/V at this time. Patient reports dizziness upon get up from bed. Patient reports nunbness and tingling sensation to her BLE is much better now compared to earlier in ER. PRN Morphine given per OCT. All scheduled meds given per OCT. Oriented patient to the room. Bed alarms on, call light within reach. Will continue to monitor.
[2021-01-04 07:31] LABS: BASO % 0.2 % (0.0-2.0); EOS # 0.1 (0.0-0.7); EOS % 1.7 % (0-4.0); GRAN # 1.8 (1.4-6.5); HEMOGLOBIN 13.7 g/dl (12.5-16.0); LYMPH # 1.9 (1.2-3.4); LYMPH % 46.6 % (20.0-51.0); MEAN CELL VOLUME 111 fl (80.0-100.0); MEAN CORPUSCULAR HEMOGLOBIN 38 pg (27.0-31.0); MEAN CORPUSCULAR HGB CONC 34 g/dl (33.0-37.0); MEAN PLATELET VOLUME 10.7 fl (7.4-10.4); MONO # 0.3 (0.1-0.6); PLATELET COUNT 202 K/mm3 (130-400); RED BLOOD COUNT 3.61 M/mm3 (4.10-5.30)
[2021-01-04 07:36] LABS: CALCIUM 7.9 mg/dL (8.4-10.2); CREATININE, serum 0.43 (0.52-1.25); POTASSIUM 3.4 mmol/L (3.4-5.0)
--- NOTE | 2021-01-04 07:44 | NUR ---
PT IS SITTIN UP AT BEDSIDE. SHE IS WATCHING HER PHONE, AND DENIES ANY PAIN AT THIS TIME. SHE STATES SHE DOES NOT NEED ANYTHING, AND WILL CALL IF SHE DOES. PT'S HYGIENE IS POOR. no other concerns.
--- NOTE | 2021-01-04 09:23 | NUR ---
Initial visit; Patient thanked Survey Technologist for looking in on her and offering God's blessings and keeping her in Survey Technologist's prayers.
--- NOTE | 2021-01-04 19:08 | NUR ---
Received report from Allie. Patient awake, lying in bed. She denies needs at this time.
--- NOTE | 2021-01-04 20:30 | NUR ---
Patient complains of pain on her RUQ. Pain score of 6/10. Morphine given. Informed patient that she will be on NPO by midnight for her procedure venice. She verbalizes understanding.
[2021-01-04 22:21] LABS: FOLATE (FOLIC ACID) 4.9 ng/mL (2.0-20.0)
[2021-01-05 04:29] VITALS: BP 111/52; PULSE 99; TEMP 98.6
--- NOTE | 2021-01-05 06:23 | NUR ---
Patient continued to have pain. Morphine given. Maintained on NPO.
--- NOTE | 2021-01-05 07:00 | NUR ---
PT LAYING IN BED AT THIS TIME. HAS C/O SWELLING. PT DID ASK PHYSICIAN VICE PRESIDENT RN FOR ANN COLIN, AND SHE HAS NOTICED THE SWELLING IN HER HANDS, FACE AND FEET. BLE PITTING EDEMA +2. NO FURTHER CONCERNS AT THIS TIME.
[2021-01-05 07:03] LABS: BASO % 0.5 % (0.0-2.0); EOS # 0.1 (0.0-0.7); EOS % 1.2 % (0-4.0); GRAN # 2.3 (1.4-6.5); GRAN % 57.1 % (42.2-75.2); LYMPH # 1.4 (1.2-3.4); LYMPH % 34.3 % (20.0-51.0); MEAN CELL VOLUME 114 fl (80.0-100.0); MEAN CORPUSCULAR HEMOGLOBIN 38 pg (27.0-31.0); MEAN CORPUSCULAR HGB CONC 33 g/dl (33.0-37.0); MEAN PLATELET VOLUME 10.9 fl (7.4-10.4); MONO # 0.3 (0.1-0.6); MONO % 6.7 % (1.7-9.3); PLATELET COUNT 168 K/mm3 (130-400); RED BLOOD COUNT 3.18 M/mm3 (4.10-5.30)
[2021-01-05 07:05] LABS: HEMATOCRIT 36.1 % (37.0-47.0)
[2021-01-05 07:20] LABS: ALBUMIN 3.1 gm/dL (3.5-5.0); BILIRUBIN,TOTAL 0.8 mg/dL (0.0-1.0); CREATININE, serum 0.44 (0.52-1.25); TOTAL PROTEIN 6.6 gm/dL (6.4-8.2)
[2021-01-05 07:52] LABS: POTASSIUM 3.2 mmol/L (3.4-5.0)
[2021-01-05 08:21] VITALS: BP 99/57; PULSE 89; TEMP 98.8
--- NOTE | 2021-01-05 11:48 | NUR ---
Summer Clerk met with the patient to complete intake. The patient lives independently in [place]. The patient has a walker, cane, and shower chair. The patient's PCP is Dr. Yates and patient receives medications from [facility]. The patient has advanced directives in the EMR. The DPOA-HCs are the patient's mother and sister. The patient reports she has lots of local support from family and friends. The patient plans to return home at discharge. SW consulted due to the patient not eating at home for the past two weeks. The patient states it was a lack of appetite. The patient states she had gastric bypass in 2016 and goes through periods that she is not able to eat due to post surgery issues. The patient states she would eat a cracker or a peanut here and there in the past two weeks. She states it is not a mental health issue or issue with affordablity of food. *Discharge disposition: Home
[2021-01-05 12:32] VITALS: BP 112/70; PULSE 79; TEMP 98.2
[2021-01-05 16:04] VITALS: BP 100/52; PULSE 76; TEMP 98.6
--- NOTE | 2021-01-05 19:08 | NUR ---
Received report from Allie. Patient awake in bed. She denies being nauseous. She agreed that she can take potassium replacement.
[2021-01-05 19:49] VITALS: BP 104/62; PULSE 93; TEMP 98.6
[2021-01-06 00:13] VITALS: BP 104/56; PULSE 70; TEMP 98
[2021-01-06 04:12] VITALS: BP 108/73; PULSE 76; TEMP 98.3
--- NOTE | 2021-01-06 06:08 | NUR ---
Patient had no episode of nausea or vomiting. Still with complains of pain, Morphine given.
[2021-01-06 07:03] LABS: BASO % 0.3 % (0.0-2.0); GRAN # 1.5 (1.4-6.5); GRAN % 49.5 % (42.2-75.2); HEMATOCRIT 37.9 % (37.0-47.0); HEMOGLOBIN 12.7 g/dl (12.5-16.0); LYMPH # 1.2 (1.2-3.4); LYMPH % 41.8 % (20.0-51.0); MEAN CELL VOLUME 114 fl (80.0-100.0); MEAN CORPUSCULAR HEMOGLOBIN 38 pg (27.0-31.0); MEAN CORPUSCULAR HGB CONC 34 g/dl (33.0-37.0); MEAN PLATELET VOLUME 10.6 fl (7.4-10.4); MONO # 0.2 (0.1-0.6); MONO % 7.1 % (1.7-9.3); PLATELET COUNT 184 K/mm3 (130-400); RED BLOOD COUNT 3.33 M/mm3 (4.10-5.30); REDCELL DISTRIBUTION WIDTH-CV 14.1 % (11.5-14.5)
[2021-01-06 07:22] LABS: ALANINE AMINOTRANSFERASE 61 U/L (4-34); ALBUMIN 3.1 gm/dL (3.5-5.0); ALKALINE PHOSPHATASE 117 U/L (50-136); ANION GAP 5 mmol/L (7-16); AST,SGOT 98 U/L (15-37); BILIRUBIN,TOTAL 0.5 mg/dL (0.0-1.0); CALCIUM 8.1 mg/dL (8.4-10.2); CARBON DIOXIDE 30 mmol/L (22-30); CHLORIDE 101 mmol/L (98-107); CREATININE, serum 0.46 (0.52-1.25); GLUCOSE 116 mg/dL (74-106); POTASSIUM 3.5 mmol/L (3.4-5.0); SODIUM 136 mmol/L (137-145); TOTAL PROTEIN 6.7 gm/dL (6.4-8.2)
[2021-01-06 07:23] LABS: BLOOD UREA NITROGEN < 2 mg/dL (7-17)
--- NOTE | 2021-01-06 08:05 | NUR ---
Pt awake and alert upon entry, has some C/O pain at this time. Shift assessments complete, left Pt call light in reach, bed in lowest position.
[2021-01-06 08:53] VITALS: BP 108/49; PULSE 90; TEMP 98.2
[2021-01-06] MEDS ORDERED: ZOFRAN ODT4 MG PO (09:29)
--- NOTE | 2021-01-06 10:04 | NUR ---
Follow-up visit; Patient thanked Camera Prototyping Engineer for looking in on her and wishing her well again today. Beckie states she is feeling better.
--- NOTE | 2021-01-06 11:50 | NUR ---
Pt discharged to home, discussed discharge information with Pt, answered questions. Pt escorted to entrance by PCT.
--- NOTE | 2021-01-06 13:13 | NUR ---
Material Processor attended clinical rounds with the team. The patient is discharged home today, 01/06. The patient lives alone but has family support. The patient has no concerns about return home. There are no additional needs at this time. *Discharge disposition: Home
== END 2021-01-06 11:50 | disposition home or self-care (01) | DRG 442 ==
LOC: COL.ER 13:46 → MEDICAL 18:20
PROVIDERS: Family Medicine; Internal Medicine Gastroenterology; Physician Assistant; Student in an Organized Health Care Education/Training Program; ADMIT Emergency Medicine
PROC: 0DJ08ZZ Inspection of Upper Intestinal Tract, Via Natural or Artificial Opening Endoscopic (ICD-10-PCS; principal; 2021-01-05 11:00)
DX: K76.0 Fatty (change of) liver, not elsewhere classified (principal); N39.0 Urinary tract infection, site not specified; E51.9 Thiamine deficiency, unspecified; K31.1 Adult hypertrophic pyloric stenosis; R65.10 Systemic inflammatory response syndrome (SIRS) of non-infectious origin without acute organ dysfunction; Z68.43 Body mass index [BMI] 50.0-59.9, adult; E87.6 Hypokalemia; D52.9 Folate deficiency anemia, unspecified; G47.33 Obstructive sleep apnea (adult) (pediatric); J45.909 Unspecified asthma, uncomplicated; R16.0 Hepatomegaly, not elsewhere classified; E66.01 Morbid (severe) obesity due to excess calories; F32.9 Major depressive disorder, single episode, unspecified; F41.9 Anxiety disorder, unspecified; F42.9 Obsessive-compulsive disorder, unspecified; F90.9 Attention-deficit hyperactivity disorder, unspecified type; G43.909 Migraine, unspecified, not intractable, without status migrainosus; G47.00 Insomnia, unspecified; G89.29 Other chronic pain; M54.9 Dorsalgia, unspecified; R73.9 Hyperglycemia, unspecified; R74.01 Elevation of levels of liver transaminase levels; R11.2 Nausea with vomiting, unspecified; F17.210 Nicotine dependence, cigarettes, uncomplicated; Z79.1 Long term (current) use of non-steroidal anti-inflammatories (NSAID); Z88.6 Allergy status to analgesic agent; Z88.8 Allergy status to other drugs, medicaments and biological substances
CPT/HCPCS: 99223-AI; 99231-AI; 99239; J0696; J1650; J2270; J2405; J2704; J3475; J3480; J7030; J7120; Q9967

== ENCOUNTER → 2021-03-18 | Outpatient (CLI) | payer OTHER, MEDICAID ==
[~2021-03-18] VITALS: Ht 175.3 cm; Wt 131.4 kg
[~2021-03-18] MED LIST changes: +CIPRO 250MG TA250 MG PO
[2021-03-18 12:03] VITALS: BP 104/62; PULSE 80; TEMP 98.6
== END | disposition still patient (30) ==
LOC: EUO 08:35
DX: Z45.2 Encounter for adjustment and management of vascular access device (principal); E87.6 Hypokalemia; E86.0 Dehydration
CPT/HCPCS: C1751; C1892

== ENCOUNTER 2021-05-12 05:51 | Emergency (ER) | payer MEDICARE, MEDICAID ==
[~2021-05-12] VITALS: Ht 172.7 cm; Wt 145.5 kg
[2021-05-12 06:06] VITALS: TEMP 97.6
[2021-05-12 06:31] LABS: BASO % 0.4 % (0.0-2.0); EOS # 0.1 (0.0-0.7); EOS % 1.5 % (0-4.0); GRAN # 1.5 (1.4-6.5); GRAN % 32.6 % (42.2-75.2); HEMATOCRIT 45.8 % (37.0-47.0); HEMOGLOBIN 15.6 g/dl (12.5-16.0); LYMPH # 2.7 (1.2-3.4); LYMPH % 57.9 % (20.0-51.0); MEAN CELL VOLUME 109 fl (80.0-100.0); MEAN CORPUSCULAR HEMOGLOBIN 37 pg (27.0-31.0); MEAN CORPUSCULAR HGB CONC 34 g/dl (33.0-37.0); MEAN PLATELET VOLUME 10.6 fl (7.4-10.4); MONO # 0.4 (0.1-0.6); MONO % 7.4 % (1.7-9.3); PLATELET COUNT 267 K/mm3 (130-400); RED BLOOD COUNT 4.22 M/mm3 (4.10-5.30); REDCELL DISTRIBUTION WIDTH-CV 12.5 % (11.5-14.5)
[2021-05-12 06:37] LABS: COLLECTION METHOD CLEAN CATCH
[2021-05-12 06:42] LABS: MUCOUS Present /lpf; PH 6 (5-8); URINE APPEARANCE Cloudy; URINE BACTERIA Rare /hpf; URINE BILIRUBIN Negative (NEGATIVE); URINE BLOOD Negative (NEGATIVE); URINE COLOR Amber; URINE GLUCOSE Negative (NEGATIVE); URINE KETONE Negative (NEGATIVE); URINE LEUKOCYTE ESTERASE Negative (NEGATIVE); URINE NITRATE Negative (NEGATIVE); URINE PROTEIN(semi-quant) 1+ (NEGATIVE); URINE RBC 0-2 /hpf; URINE UROBILINOGEN >=4.0 mg/dL (NEGATIVE)
[2021-05-12 06:47] LABS: ALBUMIN 3.7 gm/dL (3.5-5.0); BILIRUBIN,TOTAL 1.5 mg/dL (0.0-1.0); CALCIUM 8.3 mg/dL (8.4-10.2); CREATININE, serum 0.54 (0.52-1.25); POTASSIUM 3.2 mmol/L (3.4-5.0); TOTAL PROTEIN 7.8 gm/dL (6.4-8.2)
[2021-05-12 08:37] VITALS: BP 118/91; PULSE 94
== END 2021-05-12 08:39 | disposition home or self-care (01) ==
LOC: COL.ER 05:51
PROVIDERS: Emergency Medicine
DX: G89.29 Other chronic pain (principal); R10.9 Unspecified abdominal pain; D72.819 Decreased white blood cell count, unspecified; R74.02 Elevation of levels of lactic acid dehydrogenase [LDH]; R94.5 Abnormal results of liver function studies; F41.9 Anxiety disorder, unspecified; F32.9 Major depressive disorder, single episode, unspecified; I25.10 Atherosclerotic heart disease of native coronary artery without angina pectoris; Z32.02 Encounter for pregnancy test, result negative; Z90.49 Acquired absence of other specified parts of digestive tract; Z98.84 Bariatric surgery status; Z79.899 Other long term (current) drug therapy
CPT/HCPCS: J2405; J7030; Q9967

== ENCOUNTER 2021-06-10 01:40 | Emergency (ER) | payer MEDICARE, MEDICAID ==
[~2021-06-10] VITALS: Ht 175.3 cm; Wt 143.2 kg
[2021-06-10 01:42] VITALS: TEMP 98
[2021-06-10 02:27] LABS: BASO % 0.3 % (0.0-2.0); EOS % 0.3 % (0-4.0); GRAN # 2.7 K/mm3 (1.4-6.5); GRAN % 46.4 % (42.2-75.2); HEMOGLOBIN 14.8 g/dl (12.5-16.0); LYMPH # 2.7 K/mm3 (1.2-3.4); LYMPH % 45.6 % (20.0-51.0); MEAN CELL VOLUME 106 fl (80.0-100.0); MEAN CORPUSCULAR HEMOGLOBIN 37 pg (27.0-31.0); MEAN CORPUSCULAR HGB CONC 34 g/dl (33.0-37.0); MEAN PLATELET VOLUME 9.7 fl (7.4-10.4); MONO # 0.4 K/mm3 (0.1-0.6); MONO % 7.2 % (1.7-9.3); PLATELET COUNT 271 K/mm3 (130-400); RED BLOOD COUNT 4.04 M/mm3 (4.10-5.30); REDCELL DISTRIBUTION WIDTH-CV 12.6 % (11.5-14.5)
[2021-06-10 02:41] LABS: COLLECTION METHOD CLEAN CATCH
[2021-06-10 02:45] LABS: ALBUMIN 2.9 gm/dL (3.5-5.0); BILIRUBIN,TOTAL 0.6 mg/dL (0.2-1.2); C-REACTIVE PROTEIN 2.25 mg/dL (0.00-0.50); CREATININE, serum 0.73 mg/dL (0.57-1.11); TOTAL PROTEIN 7.6 gm/dL (6.2-8.1)
[2021-06-10 02:46] LABS: MUCOUS Present /lpf; PH 5 (5-8); URINE APPEARANCE Hazy; URINE BACTERIA Rare /hpf; URINE BILIRUBIN Negative (NEGATIVE); URINE BLOOD Negative (NEGATIVE); URINE COLOR Yellow; URINE GLUCOSE Negative (NEGATIVE); URINE KETONE Negative (NEGATIVE); URINE LEUKOCYTE ESTERASE Negative (NEGATIVE); URINE NITRATE Negative (NEGATIVE); URINE PROTEIN(semi-quant) Negative (NEGATIVE); URINE RBC 0-2 /hpf
[2021-06-10 02:46] LABS: POTASSIUM 2.8 mmol/L (3.5-4.5)
[2021-06-10 04:48] VITALS: BP 113/93; PULSE 111
== END 2021-06-10 04:48 | disposition home or self-care (01) ==
LOC: COL.ER 01:40
PROVIDERS: Nurse Practitioner
DX: G89.29 Other chronic pain (principal); R10.11 Right upper quadrant pain; E87.6 Hypokalemia; F32.A Depression, unspecified; F41.9 Anxiety disorder, unspecified; F17.210 Nicotine dependence, cigarettes, uncomplicated; Z32.02 Encounter for pregnancy test, result negative; Z98.84 Bariatric surgery status; Z90.49 Acquired absence of other specified parts of digestive tract; E66.01 Morbid (severe) obesity due to excess calories; Z79.899 Other long term (current) drug therapy

== ENCOUNTER 2021-07-06 16:18 | Emergency (ER) | payer MEDICARE, MEDICAID ==
[~2021-07-06] VITALS: Ht 175.3 cm; Wt 145.5 kg
[2021-07-06 16:21] VITALS: TEMP 98.1
[2021-07-06 17:10] LABS: BASO % 0.2 % (0.0-2.0); EOS % 0.7 % (0-4.0); GRAN # 2.2 K/mm3 (1.4-6.5); GRAN % 51.5 % (42.2-75.2); HEMATOCRIT 41.2 % (37.0-47.0); HEMOGLOBIN 14.4 g/dl (12.5-16.0); LYMPH # 1.8 K/mm3 (1.2-3.4); LYMPH % 42.7 % (20.0-51.0); MEAN CELL VOLUME 105 fl (80.0-100.0); MEAN CORPUSCULAR HEMOGLOBIN 37 pg (27.0-31.0); MEAN CORPUSCULAR HGB CONC 35 g/dl (33.0-37.0); MEAN PLATELET VOLUME 9.6 fl (7.4-10.4); MONO # 0.2 K/mm3 (0.1-0.6); MONO % 4.9 % (1.7-9.3); PLATELET COUNT 231 K/mm3 (130-400); RED BLOOD COUNT 3.94 M/mm3 (4.10-5.30); REDCELL DISTRIBUTION WIDTH-CV 13.5 % (11.5-14.5)
[2021-07-06 17:13] LABS: COLLECTION METHOD CLEAN CATCH
[2021-07-06 17:28] LABS: ALBUMIN 2.9 gm/dL (3.5-5.0); BILIRUBIN,TOTAL 0.7 mg/dL (0.2-1.2); C-REACTIVE PROTEIN 1.47 mg/dL (0.00-0.50); CALCIUM 8.6 mg/dL (8.4-10.2); CREATININE, serum 0.69 mg/dL (0.57-1.11); POTASSIUM 3.6 mmol/L (3.5-4.5); TOTAL PROTEIN 6.9 gm/dL (6.2-8.1)
[2021-07-06 17:32] LABS: MUCOUS Present (NOT PRESENT); PH 6 (5-8); URINE APPEARANCE Cloudy (CLEAR/HAZY); URINE BACTERIA None Seen (NONE SEEN); URINE BILIRUBIN Negative (NEGATIVE); URINE BLOOD Negative (NEGATIVE); URINE COLOR Yellow (YELLOW); URINE GLUCOSE Negative (NEGATIVE); URINE KETONE Negative (NEGATIVE); URINE LEUKOCYTE ESTERASE Negative (NEGATIVE); URINE NITRATE Negative (NEGATIVE); URINE PROTEIN(semi-quant) Negative (NEGATIVE)
[2021-07-06 22:40] VITALS: BP 135/74; PULSE 95
== END 2021-07-06 22:40 | disposition home or self-care (01) ==
LOC: COL.ER 16:18
PROVIDERS: Physician Assistant
DX: R10.31 Right lower quadrant pain (principal); R11.2 Nausea with vomiting, unspecified; R19.7 Diarrhea, unspecified; F32.A Depression, unspecified; F41.9 Anxiety disorder, unspecified; F17.210 Nicotine dependence, cigarettes, uncomplicated; Z98.84 Bariatric surgery status; Z90.49 Acquired absence of other specified parts of digestive tract; Z88.6 Allergy status to analgesic agent; Z20.822 Contact with and (suspected) exposure to COVID-19; Z32.02 Encounter for pregnancy test, result negative; Z79.899 Other long term (current) drug therapy
CPT/HCPCS: J1885; J2270; J2405; J3010; J7030; Q9967

== ENCOUNTER 2021-08-11 20:41 | Emergency (ER) | payer MEDICARE, MEDICAID ==
[~2021-08-11] VITALS: Ht 20.3 cm; Wt 145.5 kg
[2021-08-11 21:22] LABS: BASO % 0.2 % (0.0-2.0); EOS % 0.2 % (0.0-4.0); GRAN # 4.5 K/mm3 (1.4-6.5); HEMATOCRIT 44.4 % (37.0-47.0); HEMOGLOBIN 15.4 g/dl (12.5-16.0); LYMPH # 1.1 K/mm3 (1.2-3.4); LYMPH % 18.3 % (20.0-51.0); MEAN CELL VOLUME 107 fl (80.0-100.0); MEAN CORPUSCULAR HEMOGLOBIN 37 pg (27-31); MEAN CORPUSCULAR HGB CONC 35 g/dl (33.0-37.0); MEAN PLATELET VOLUME 10.2 fl (7.4-10.4); MONO # 0.3 K/mm3 (0.1-0.6); MONO % 5.1 % (1.7-9.3); PLATELET COUNT 217 K/mm3 (130-400); RED BLOOD COUNT 4.16 M/mm3 (4.10-5.30); REDCELL DISTRIBUTION WIDTH-CV 13.2 % (11.5-14.5)
[2021-08-11 22:35] LABS: ALBUMIN 3.2 gm/dL (3.5-5.0); BILIRUBIN,TOTAL 2.4 mg/dL (0.2-1.2); C-REACTIVE PROTEIN 4.3 mg/dL (0.00-0.50); CREATININE, serum 0.78 mg/dL (0.57-1.11); MAGNESIUM 1.6 mg/dL (1.6-2.6); TOTAL PROTEIN 7.8 gm/dL (6.2-8.1)
[2021-08-11 23:01] LABS: COLLECTION METHOD CLEAN CATCH
[2021-08-11 23:09] LABS: MUCOUS Present (NOT PRESENT); PH 6 (5-8); URINE APPEARANCE Hazy (CLEAR/HAZY); URINE BACTERIA None Seen /hpf (NONE SEEN); URINE BILIRUBIN Negative (NEGATIVE); URINE BLOOD Negative (NEGATIVE); URINE COLOR Amber (YELLOW); URINE GLUCOSE Negative (NEGATIVE); URINE KETONE 1+ (NEGATIVE); URINE LEUKOCYTE ESTERASE Negative (NEGATIVE); URINE NITRATE Negative (NEGATIVE); URINE PROTEIN(semi-quant) Negative (NEGATIVE); URINE RBC 0-2 /hpf (0-2); URINE UROBILINOGEN >=4.0 (NEGATIVE)
[2021-08-12] MEDS ORDERED: ROXICODONE 55 MG/TAB PO (01:09)
[2021-08-12 01:23] VITALS: BP 120/90; PULSE 98; TEMP 98.4
== END 2021-08-12 01:23 | disposition home or self-care (01) ==
LOC: COL.ER 20:41
PROVIDERS: Emergency Medicine; Nurse Practitioner
DX: R10.31 Right lower quadrant pain (principal); R79.82 Elevated C-reactive protein (CRP); R79.89 Other specified abnormal findings of blood chemistry; F32.A Depression, unspecified; F41.9 Anxiety disorder, unspecified; Z90.49 Acquired absence of other specified parts of digestive tract; Z98.84 Bariatric surgery status; Z79.899 Other long term (current) drug therapy
CPT/HCPCS: J2270; J2405; J2550; J7030; Q9967

== ENCOUNTER 2021-10-02 18:09 | Emergency (ER) | payer MEDICARE, MEDICAID ==
[~2021-10-02] VITALS: Ht 175.3 cm; Wt 143.2 kg
[~2021-10-02 18:09] MED LIST changes: +ROXICODONE 55 MG/TAB PO
[2021-10-02 19:22] LABS: BASO % 0.3 % (0.0-2.0); EOS % 0.2 % (0.0-4.0); GRAN # 6.6 K/mm3 (1.4-6.5); GRAN % 74.6 % (42.2-75.2); HEMATOCRIT 39.9 % (37.0-47.0); HEMOGLOBIN 14.4 g/dl (12.5-16.0); LYMPH # 1.6 K/mm3 (1.2-3.4); LYMPH % 18.3 % (20.0-51.0); MEAN CELL VOLUME 102 fl (80.0-100.0); MEAN CORPUSCULAR HEMOGLOBIN 37 pg (27-31); MEAN CORPUSCULAR HGB CONC 36 g/dl (33.0-37.0); MEAN PLATELET VOLUME 10.2 fl (7.4-10.4); MONO # 0.6 K/mm3 (0.1-0.6); MONO % 6.4 % (1.7-9.3); PLATELET COUNT 197 K/mm3 (130-400); RED BLOOD COUNT 3.93 M/mm3 (4.10-5.30); REDCELL DISTRIBUTION WIDTH-CV 11.8 % (11.5-14.5)
[2021-10-02 19:42] LABS: ALBUMIN 2.3 gm/dL (3.5-5.0); BILIRUBIN,TOTAL 1.2 mg/dL (0.2-1.2); CALCIUM 7.8 mg/dL (8.4-10.2); CREATININE, serum 0.75 mg/dL (0.57-1.11); TOTAL PROTEIN 7.1 gm/dL (6.2-8.1)
[2021-10-02 19:45] LABS: POTASSIUM 2.8 mmol/L (3.5-4.5)
[2021-10-02 19:56] LABS: COLLECTION METHOD CATHETER
[2021-10-02 20:08] LABS: MUCOUS Present (NOT PRESENT); PH 5 (5-8); SQUAMOUS EPITHELIAL 0-2 /hpf (0-10); URINE APPEARANCE Cloudy (CLEAR/HAZY); URINE BACTERIA None Seen /hpf (NONE SEEN); URINE BILIRUBIN Positive (NEGATIVE); URINE BLOOD 2+ (NEGATIVE); URINE COLOR Amber (YELLOW); URINE GLUCOSE Negative (NEGATIVE); URINE KETONE Negative (NEGATIVE); URINE LEUKOCYTE ESTERASE Negative (NEGATIVE); URINE NITRATE Negative (NEGATIVE); URINE PROTEIN(semi-quant) 1+ (NEGATIVE); URINE RBC >50 /hpf (0-2); URINE UROBILINOGEN >=4.0 (NEGATIVE)
[2021-10-02 21:30] LABS: INR 1.2 (0.8-3.0); PROTHROMBIN TIME 13.7 SECONDS (9.7-12.8)
[2021-10-02 21:41] LABS: MAGNESIUM 1.3 mg/dL (1.6-2.6); SALICYLATE < 5.0 mg/dL (15.0-30.0)
[2021-10-02 21:48] LABS: TROPONIN-I < 0.010 ng/mL (0.00-0.033)
[2021-10-02] MEDS ORDERED: K-DUR 10 MEQ T10 MEQ PO (22:07)
[2021-10-02] MEDS ORDERED: VITAMIN D31000 IU PO (22:07)
[2021-10-02] MEDS ORDERED: SONATA 10MG10 MG PO (22:10)
[2021-10-02] MEDS ORDERED: DESYREL 50MG50 MG PO (22:10)
[2021-10-02] MEDS ORDERED: PRISTIQ100 MG PO (22:11)
[2021-10-02 23:24] LABS: TSH w REFLEX 5.093 uIU/mL (0.350-4.940)
[2021-10-03 01:00] VITALS: BP 108/73; PULSE 111; TEMP 98.3
== END 2021-10-03 01:42 | disposition short-term general hospital (02) ==
LOC: COL.ER 18:09 → ICU 20:59
PROVIDERS: Nurse Practitioner Family; Personal Emergency Response Attendant
DX: T68.XXXA Hypothermia, initial encounter (principal); N61.0 Mastitis without abscess; A41.9 Sepsis, unspecified organism; E51.9 Thiamine deficiency, unspecified; F17.200 Nicotine dependence, unspecified, uncomplicated; Z98.84 Bariatric surgery status
CPT/HCPCS: 99223-AI; A4314; J0692; J0696; J3370; J3411; J3475; J3480; J7030; J7050

== ENCOUNTER 2022-01-22 04:27 | Emergency (ER) | payer MEDICARE, MEDICAID ==
[~2022-01-22] VITALS: Ht 175.3 cm; Wt 127.3 kg
[~2022-01-22 04:27] MED LIST changes: +DESYREL 50MG50 MG PO; +PRISTIQ100 MG PO; +SONATA 10MG10 MG PO; +VITAMIN D31000 IU PO
[2022-01-22 04:29] VITALS: TEMP 97.8
[2022-01-22 05:00] LABS: BASO % 0.4 % (0.0-2.0); EOS % 0.6 % (0.0-4.0); GRAN # 1.6 K/mm3 (1.4-6.5); GRAN % 33.7 % (42.2-75.2); HEMOGLOBIN 14.8 g/dl (12.5-16.0); LYMPH # 2.8 K/mm3 (1.2-3.4); LYMPH % 58.2 % (20.0-51.0); MEAN CELL VOLUME 107 fl (80.0-100.0); MEAN CORPUSCULAR HEMOGLOBIN 35 pg (27-31); MEAN CORPUSCULAR HGB CONC 33 g/dl (33.0-37.0); MEAN PLATELET VOLUME 10.9 fl (7.4-10.4); MONO # 0.3 K/mm3 (0.1-0.6); MONO % 6.9 % (1.7-9.3); PLATELET COUNT 173 K/mm3 (130-400); RED BLOOD COUNT 4.21 M/mm3 (4.10-5.30); REDCELL DISTRIBUTION WIDTH-CV 13.6 % (11.5-14.5)
[2022-01-22 05:10] LABS: CALCIUM 8.4 mg/dL (8.4-10.2); CREATININE, serum 0.7 mg/dL (0.57-1.11); POTASSIUM 3.5 mmol/L (3.5-4.5)
[2022-01-22 05:29] LABS: TRICYCLIC ANTIDEPRESS URINE NEGATIVE
[2022-01-22 08:13] LABS: PROTHROMBIN TIME 11.8 SECONDS (9.7-12.8)
[2022-01-22 08:15] LABS: PARTIAL THROMBOPLASTIN TIME 28.9 SECONDS (26.0-37.0)
[2022-01-22] MEDS ORDERED: ELIQUIS 5MG PO (10:03)
[2022-01-22 10:20] VITALS: BP 100/86; PULSE 106
[2022-01-23] MEDS ORDERED: AMBIEN 10MG10 MG (15:49)
[2022-01-23] MEDS ORDERED: MINIPRESS 1M1 MG/CAP PO (15:49)
[2022-01-23] MEDS ORDERED: NORCO 325 MG-51 TAB PO (16:14)
== END 2022-01-22 10:40 | disposition home or self-care (01) ==
LOC: COL.ER 04:27
PROVIDERS: Emergency Medicine; Family Medicine
DX: I82.C12 Acute embolism and thrombosis of left internal jugular vein (principal); Z28.310 Unvaccinated for COVID-19
CPT/HCPCS: J2270; J2765; J7030; Q9967

== ENCOUNTER 2022-01-23 15:00 | Emergency (ER) | payer MEDICARE, MEDICAID ==
[~2022-01-23] VITALS: Ht 175.3 cm; Wt 129.5 kg
[~2022-01-23 15:00] MED LIST changes: +ELIQUIS 5MG PO
[2022-01-23 15:01] VITALS: TEMP 98.3
[2022-01-23 15:30] LABS: BASO % 0.3 % (0.0-2.0); EOS % 0.8 % (0.0-4.0); GRAN # 1.9 K/mm3 (1.4-6.5); GRAN % 50.2 % (42.2-75.2); HEMATOCRIT 44.6 % (37.0-47.0); HEMOGLOBIN 15.3 g/dl (12.5-16.0); LYMPH # 1.6 K/mm3 (1.2-3.4); MEAN CELL VOLUME 103 fl (80.0-100.0); MEAN CORPUSCULAR HEMOGLOBIN 35 pg (27-31); MEAN CORPUSCULAR HGB CONC 34 g/dl (33.0-37.0); MEAN PLATELET VOLUME 10.2 fl (7.4-10.4); MONO # 0.3 K/mm3 (0.1-0.6); MONO % 6.7 % (1.7-9.3); PLATELET COUNT 179 K/mm3 (130-400); RED BLOOD COUNT 4.33 M/mm3 (4.10-5.30); REDCELL DISTRIBUTION WIDTH-CV 13.3 % (11.5-14.5)
[2022-01-23] MEDS ORDERED: MINIPRESS 1M1 MG/CAP PO (15:49)
[2022-01-23] MEDS ORDERED: AMBIEN 10MG10 MG (15:49)
[2022-01-23 15:50] LABS: ALBUMIN 2.6 gm/dL (3.5-5.0); BILIRUBIN,TOTAL 1.1 mg/dL (0.2-1.2); C-REACTIVE PROTEIN 7.21 mg/dL (0.00-0.50); CALCIUM 8.4 mg/dL (8.4-10.2); CREATININE, serum 0.59 mg/dL (0.57-1.11); POTASSIUM 3.4 mmol/L (3.5-4.5)
[2022-01-23 16:00] LABS: ERYTHROCYTE SEDIMENTATION RATE 18 mm/hr (0-20)
[2022-01-23] MEDS ORDERED: NORCO 325 MG-51 TAB PO (16:14)
[2022-01-23 16:23] VITALS: BP 103/75; PULSE 99
== END 2022-01-23 16:35 | disposition home or self-care (01) ==
LOC: COL.ER 15:00
PROVIDERS: Emergency Medicine
DX: R05.9 Cough, unspecified (principal)
CPT/HCPCS: J1170; J1885

== ENCOUNTER 2022-03-28 11:43 | Emergency (ER) | payer MEDICARE, MEDICAID ==
[~2022-03-28] VITALS: Ht 175.3 cm; Wt 129.1 kg
[~2022-03-28 11:43] MED LIST changes: +AMBIEN 10MG10 MG; +MINIPRESS 1M1 MG/CAP PO
[2022-03-28 14:20] VITALS: BP 111/53; PULSE 84; TEMP 98.8
== END 2022-03-28 14:20 | disposition home or self-care (01) ==
LOC: COL.ER 11:43
DX: G93.2 Benign intracranial hypertension (principal); F17.210 Nicotine dependence, cigarettes, uncomplicated; Z28.310 Unvaccinated for COVID-19

== ENCOUNTER 2022-04-04 10:51 | Outpatient (CLI) | payer MEDICARE, MEDICAID ==
[~2022-04-04] VITALS: Ht 175.3 cm; Wt 130.5 kg
[2022-04-04] MEDS ORDERED: PROAIR HFA0.09 MG/AC IH (11:15)
[2022-04-04] MEDS ORDERED: XANAX 0.5MG0.5 MG PO (11:16)
[2022-04-04] MEDS ORDERED: PRISTIQ100 MG PO (11:17)
[2022-04-04] MEDS ORDERED: VITAMIN D31000 I1 PO (11:17)
[2022-04-04] MEDS ORDERED: EFFER-K20 MEQ PO (11:18)
[2022-04-04] MEDS ORDERED: ELIQUIS 5MG PO (11:19)
[2022-04-04] MEDS ORDERED: VITAMIN D 50,1.25 MG PO (11:20)
[2022-04-04] MEDS ORDERED: FOLIC ACID 11 MG/TA1 PO (11:21)
[2022-04-04] MEDS ORDERED: GERITOL COMPLET1 TA1 PO (11:23)
[2022-04-04] MEDS ORDERED: XYZAL5 MG PO (11:24)
[2022-04-04] MEDS ORDERED: MIRTAZAPINE7.5 MG PO (11:25)
[2022-04-04] MEDS ORDERED: MULTI VITAMINS1 TAB PO (11:25)
[2022-04-04] MEDS ORDERED: MINIPRESS 1M1 MG/CAP PO (11:26)
[2022-04-04] MEDS ORDERED: ALDACTONE50 MG PO (11:27)
[2022-04-04] MEDS ORDERED: D3-5050000 IU PO (11:28)
[2022-04-04] MEDS ORDERED: PHARMASSURE ZIN50 MG (11:29)
[2022-04-04] MEDS ORDERED: AMBIEN 10MG10 MG PO (11:29)
[2022-04-04 11:30] VITALS: BP 119/87; PULSE 92; TEMP 97.5
[2022-04-04 12:20] VITALS: BP 111/75; PULSE 81
[2022-04-04 12:45] VITALS: BP 107/79; PULSE 79
[2022-04-04 12:55] LABS: CSF MONONUCLEAR 60 % (70-100); CSF POLYMORPHONUCLEAR 40 % (0-6); CSF RBC 5000 /mm3 (0-0)
[2022-04-04 12:56] LABS: CSF APPEARANCE HAZY; CSF COLOR PINK
[2022-04-04 13:00] VITALS: BP 106/74; PULSE 84
[2022-04-04 13:30] VITALS: BP 96/73; PULSE 83
[2022-04-04 13:45] LABS: GLUCOSE,CSF 62 mg/dL (40-70); TOTAL PROTEIN,CSF 31 mg/dL (15-45)
[2022-04-04 14:00] VITALS: BP 115/80; PULSE 80
[2022-04-07 09:28] LABS: ALBUMIN CSF 16.7 mg/dL (<=27.0); ALBUMUN SERUM 3800 mg/dL (())
[2022-04-07 09:31] LABS: IGG,SERUM 1450 mg/dL (()); IGG/ALBUMIN SERUM 0.38 (<=0.40)
[2022-04-07 09:43] LABS: CSF IGG/ALBUMIN 0.23 (<=0.21); CSF SYNTHESIS RATE 2.49 mg/24 h (<=12); CSF,IGG 3.8 mg/dL (<=8.1); CSF-IGG INDEX 0.61 (<=0.85)
[2022-04-07 14:04] LABS: CSF OLIG BD INTERPRETATION 0 bands (<2); SE OLIGOCLONAL BANDING 2 bands (())
== END 2022-04-04 14:15 | disposition home or self-care (01) ==
LOC: COL.RAD 10:51
PROVIDERS: Psychiatry & Neurology Neurology
DX: G93.2 Benign intracranial hypertension (principal)

== ENCOUNTER 2022-04-25 18:59 | Observation (INO) | payer MEDICARE, MEDICAID ==
[~2022-04-25] VITALS: Ht 175.3 cm; Wt 118.2 kg
[~2022-04-25 18:59] MED LIST changes: +ALDACTONE50 MG PO; +D3-5050000 IU PO; +EFFER-K20 MEQ PO; +GERITOL COMPLET1 TA1 PO; +MIRTAZAPINE7.5 MG PO; +PHARMASSURE ZIN50 MG; +PROAIR HFA0.09 MG/AC IH; +VITAMIN D 50,1.25 MG PO; +VITAMIN D31000 I1 PO; +XYZAL5 MG PO
[2022-04-25 19:24] LABS: BASO % 0.7 % (0.0-2.0); EOS % 0.5 % (0.0-4.0); GRAN # 3.4 K/mm3 (1.4-6.5); GRAN % 59.8 % (42.2-75.2); HEMATOCRIT 41.9 % (37.0-47.0); HEMOGLOBIN 15.2 g/dl (12.5-16.0); LYMPH # 1.9 K/mm3 (1.2-3.4); LYMPH % 33.6 % (20.0-51.0); MEAN CELL VOLUME 110 fl (80.0-100.0); MEAN CORPUSCULAR HEMOGLOBIN 40 pg (27-31); MEAN CORPUSCULAR HGB CONC 36 g/dl (33.0-37.0); MEAN PLATELET VOLUME 9.8 fl (7.4-10.4); MONO # 0.3 K/mm3 (0.1-0.6); MONO % 5.2 % (1.7-9.3); PLATELET COUNT 271 K/mm3 (130-400); RED BLOOD COUNT 3.82 M/mm3 (4.10-5.30); REDCELL DISTRIBUTION WIDTH-CV 13.5 % (11.5-14.5)
[2022-04-25 19:29] LABS: PROTHROMBIN TIME 11.5 SECONDS (9.7-12.8)
[2022-04-25 19:31] LABS: PARTIAL THROMBOPLASTIN TIME 27.6 SECONDS (26.0-37.0)
[2022-04-25 19:42] LABS: BILIRUBIN,TOTAL 1.9 mg/dL (0.2-1.2); CALCIUM 8.6 mg/dL (8.4-10.2); CREATININE, serum 0.78 mg/dL (0.57-1.11); TOTAL PROTEIN 7.2 gm/dL (6.2-8.1)
[2022-04-25 19:44] LABS: POTASSIUM 2.9 mmol/L (3.5-4.5)
[2022-04-25 20:02] LABS: PROLACTIN 36.1 ng/mL (5.18-26.53); TROPONIN-I 0.014 ng/mL (0.00-0.033)
[2022-04-25] MEDS ORDERED: ALDACTONE 25MG25 M1 PO (21:59)
[2022-04-25] MEDS ORDERED: NEURONTIN300 MG/CAP PO (21:59)
[2022-04-25] MEDS ORDERED: COMPLETE MULTI1 TAB PO (21:59)
[2022-04-25] MEDS ORDERED: VITAMIND3 5000 PO ×2 (22:02→22:03)
[2022-04-25 22:03] VITALS: BP 147/94; PULSE 137
[2022-04-25 23:05] VITALS: BP 102/69; PULSE 92; TEMP 98.6
[2022-04-26] VITALS (7 sets, daily range): BP systolic 97–136; BP diastolic 50–74; PULSE 56–88; TEMP 98–99
[2022-04-26 06:28] LABS: BASO % 0.6 % (0.0-2.0); EOS % 0.6 % (0.0-4.0); GRAN # 1.9 K/mm3 (1.4-6.5); GRAN % 40.2 % (42.2-75.2); LYMPH # 2.4 K/mm3 (1.2-3.4); LYMPH % 51.6 % (20.0-51.0); MEAN CELL VOLUME 112 fl (80.0-100.0); MEAN CORPUSCULAR HGB CONC 36 g/dl (33.0-37.0); MEAN PLATELET VOLUME 10.4 fl (7.4-10.4); MONO # 0.3 K/mm3 (0.1-0.6); PLATELET COUNT 234 K/mm3 (130-400); RED BLOOD COUNT 3.22 M/mm3 (4.10-5.30); REDCELL DISTRIBUTION WIDTH-CV 13.7 % (11.5-14.5)
[2022-04-26 06:34] LABS: MEAN CORPUSCULAR HEMOGLOBIN 40 pg (27-31)
[2022-04-26 06:36] LABS: HEMOGLOBIN 12.8 g/dl (12.5-16.0)
[2022-04-26 06:54] LABS: CALCIUM 7.9 mg/dL (8.4-10.2); CREATININE, serum 0.57 mg/dL (0.57-1.11); POTASSIUM 3.5 mmol/L (3.5-4.5)
[2022-04-26 06:55] LABS: MAGNESIUM 2.5 mg/dL (1.6-2.6)
[2022-04-26 07:07] LABS: COLLECTION METHOD CLEAN CATCH
[2022-04-26 07:22] LABS: URINE APPEARANCE Clear (CLEAR/HAZY); URINE COLOR Yellow (YELLOW)
[2022-04-26 07:23] LABS: URINE BLOOD Negative (NEGATIVE); URINE GLUCOSE Negative (NEGATIVE); URINE KETONE Negative (NEGATIVE); URINE NITRATE Negative (NEGATIVE); URINE PROTEIN(semi-quant) Negative (NEGATIVE)
[2022-04-26 07:25] LABS: MUCOUS Present (NOT PRESENT); URINE BACTERIA None Seen /hpf (NONE SEEN); URINE RBC 0-2 /hpf (0-2)
[2022-04-26 07:30] LABS: TRICYCLIC ANTIDEPRESS URINE NEGATIVE
--- NOTE | 2022-04-26 11:43 | NUR ---
Patient alert and oriented x 4 IVF with potassium infusing on the left . Vital signs within normal limit. Assessment completed on patient and noted mutiple scratches on bilateral lower extremites. Patient denies pain or episode of syncope at this time. Will continue monitoring patient .
--- NOTE | 2022-04-26 12:38 | NUR ---
Gely: No nondenominational preference Situation: [facility] stopped by room on rounds Background: Pt was resting and content Assessment: No needs right now. Pt appreciated the visit Recommendation: [facility] will follow up as needed
--- NOTE | 2022-04-26 19:32 | NUR ---
RECEIVED CHANGE OF SHIFT REPORT FROM DAY SHIFT RN.
[2022-04-27 03:19] VITALS: BP 104/65; PULSE 84; TEMP 98.5
[2022-04-27 05:36] LABS: BASO % 0.4 % (0.0-2.0); EOS # 0.1 K/mm3 (0.0-0.7); EOS % 1.1 % (0.0-4.0); GRAN % 45.6 % (42.2-75.2); HEMOGLOBIN 12.4 g/dl (12.5-16.0); LYMPH # 2.1 K/mm3 (1.2-3.4); LYMPH % 46.4 % (20.0-51.0); MEAN CELL VOLUME 115 fl (80.0-100.0); MEAN CORPUSCULAR HEMOGLOBIN 40 pg (27-31); MEAN CORPUSCULAR HGB CONC 34 g/dl (33.0-37.0); MEAN PLATELET VOLUME 10.3 fl (7.4-10.4); MONO # 0.3 K/mm3 (0.1-0.6); MONO % 6.3 % (1.7-9.3); PLATELET COUNT 212 K/mm3 (130-400); RED BLOOD COUNT 3.13 M/mm3 (4.10-5.30); REDCELL DISTRIBUTION WIDTH-CV 13.6 % (11.5-14.5)
[2022-04-27 05:55] LABS: CREATININE, serum 0.65 mg/dL (0.57-1.11); POTASSIUM 3.5 mmol/L (3.5-4.5)
--- NOTE | 2022-04-27 06:54 | NUR ---
CHANGE OF SHIFT REPORT GIVEN TO DAY SHIFT RNs, BRIGITTE.
[2022-04-27 07:31] VITALS: BP 125/70; PULSE 80; TEMP 98.2
--- NOTE | 2022-04-27 09:26 | NUR ---
SW attended rounding with care team. Reviewed PT recommendations of outpatient PT with patient and hospitalist. Patient reports that she has been going to outpatient therapy for the past 7 years, but was put on hold by her PCP due to a blood clot in my "jugular". Patient is independent with her ADL's and utilizes both a cane and a walker to assist with mobility. She has no home oxygen needs. PCP is and she utilizes [facility] for prescriptions. Patient is planning on being discharged today. She has an appointment with her PCP today at 1630. Discharge plan: Home
--- NOTE | 2022-04-27 10:38 | NUR ---
Patient Alert and oriented x4, morning assessment completed . Patient's Vital signs within normal limit. INT on right hand dry and intact. No redness noted at the site. Patient denies pain at this time.
--- NOTE | 2022-04-27 11:07 | NUR ---
Discharge instruction and handouts of hypokalemia and syncope given to patient. Patient instructed to discontinue taking ambien per Physicain orders and follow up appointment with PCM. Patient verbalized understanding. Tele monitor and INT discontinued. Patient escorted via wheele chair to the main entrance for uber rock picker to home.
== END 2022-04-27 11:00 | disposition home or self-care (01) ==
LOC: COL.ER 18:59 → SURG 21:44
PROVIDERS: Emergency Medicine; Student in an Organized Health Care Education/Training Program; ADMIT Internal Medicine
DX: R55 Syncope and collapse (principal); E87.6 Hypokalemia; E83.42 Hypomagnesemia; R00.0 Tachycardia, unspecified; E66.01 Morbid (severe) obesity due to excess calories; K31.1 Adult hypertrophic pyloric stenosis; G47.33 Obstructive sleep apnea (adult) (pediatric); E51.9 Thiamine deficiency, unspecified; E53.8 Deficiency of other specified B group vitamins; F17.210 Nicotine dependence, cigarettes, uncomplicated; E51.2 Wernicke's encephalopathy; K76.0 Fatty (change of) liver, not elsewhere classified; R16.0 Hepatomegaly, not elsewhere classified; G93.2 Benign intracranial hypertension; I82.C11 Acute embolism and thrombosis of right internal jugular vein; G43.909 Migraine, unspecified, not intractable, without status migrainosus; R74.01 Elevation of levels of liver transaminase levels; F41.8 Other specified anxiety disorders; F42.9 Obsessive-compulsive disorder, unspecified; F90.9 Attention-deficit hyperactivity disorder, unspecified type; M54.9 Dorsalgia, unspecified; G89.29 Other chronic pain; Z98.84 Bariatric surgery status; Z79.899 Other long term (current) drug therapy
CPT/HCPCS: G0378; J2405; J2550; J3475; J3480; J7030

== ENCOUNTER → 2022-05-02 | Outpatient (CLI) | payer MEDICARE, MEDICAID ==
[~2022-05-02] MED LIST changes: +COMPLETE MULTI1 TAB PO; +NEURONTIN300 MG/CAP PO
== END ==
LOC: COL.VAS 13:44
DX: R55 Syncope and collapse (principal)

== ENCOUNTER 2022-05-04 04:50 | Emergency (ER) | payer MEDICARE, MEDICAID ==
[~2022-05-04] VITALS: Ht 172.7 cm; Wt 130.0 kg
[2022-05-04 05:06] LABS: BASO % 0.3 % (0.0-2.0); EOS % 0.5 % (0.0-4.0); GRAN # 2.1 K/mm3 (1.4-6.5); GRAN % 33.2 % (42.2-75.2); HEMATOCRIT 42.2 % (37.0-47.0); HEMOGLOBIN 15.1 g/dl (12.5-16.0); LYMPH # 3.8 K/mm3 (1.2-3.4); LYMPH % 59.5 % (20.0-51.0); MEAN CELL VOLUME 112 fl (80.0-100.0); MEAN CORPUSCULAR HEMOGLOBIN 40 pg (27-31); MEAN CORPUSCULAR HGB CONC 36 g/dl (33.0-37.0); MONO # 0.4 K/mm3 (0.1-0.6); MONO % 6.3 % (1.7-9.3); PLATELET COUNT 303 K/mm3 (130-400); RED BLOOD COUNT 3.76 M/mm3 (4.10-5.30); REDCELL DISTRIBUTION WIDTH-CV 13.5 % (11.5-14.5)
[2022-05-04 05:24] LABS: ALANINE AMINOTRANSFERASE 39 U/L (0-55); ALBUMIN 3.2 gm/dL (3.5-5.0); ALCOHOL(ethanol),MEDICAL 202 mg/dL (0-10); ALKALINE PHOSPHATASE 108 U/L (40-150); ANION GAP 17 mmol/L (7-16); AST,SGOT 27 U/L (5-34); BILIRUBIN,TOTAL 0.5 mg/dL (0.2-1.2); BLOOD UREA NITROGEN 9 mg/dL (7-19); CALCIUM 8.8 mg/dL (8.4-10.2); CARBON DIOXIDE 16 mmol/L (22-29); CHLORIDE 107 mmol/L (98-107); CREATININE, serum 0.89 mg/dL (0.57-1.11); GLUCOSE 136 mg/dL (70-99); POTASSIUM 3.1 mmol/L (3.5-4.5); SODIUM 140 mmol/L (136-145); TOTAL PROTEIN 7.6 gm/dL (6.2-8.1)
[2022-05-04 05:42] LABS: TROPONIN-I < 0.010 ng/mL (0.00-0.033)
[2022-05-04] MEDS ORDERED: ULTRAM 50MG TAB50 MG PO (06:38)
[2022-05-04] MEDS ORDERED: LIDODERM 5% PATC1 EA TP (06:38)
[2022-05-04 06:41] VITALS: BP 121/88; TEMP 98.3
[2022-05-04 08:10] VITALS: PULSE 112
== END 2022-05-04 08:10 | disposition home or self-care (01) ==
LOC: COL.ER 04:50
PROVIDERS: Emergency Medicine
DX: S82.61XA Displaced fracture of lateral malleolus of right fibula, initial encounter for closed fracture (principal); S20.211A Contusion of right front wall of thorax, initial encounter; R55 Syncope and collapse; F10.129 Alcohol abuse with intoxication, unspecified; E66.01 Morbid (severe) obesity due to excess calories; F17.200 Nicotine dependence, unspecified, uncomplicated; Y90.7 Blood alcohol level of 200-239 mg/100 ml; Z28.310 Unvaccinated for COVID-19; Z68.41 Body mass index [BMI] 40.0-44.9, adult; X50.1XXA Overexertion from prolonged static or awkward postures, initial encounter
CPT/HCPCS: J3411; J7030; L4386

== ENCOUNTER 2022-10-12 07:07 | Emergency (ER) | payer MEDICARE, MEDICAID ==
[~2022-10-12] VITALS: Ht 175.3 cm; Wt 118.2 kg
[2022-10-12 07:40] VITALS: TEMP 97.5
[2022-10-12 08:21] LABS: COLLECTION METHOD CLEAN CATCH
[2022-10-12 08:45] LABS: MUCOUS Present (NOT PRESENT); URINE BACTERIA Rare /hpf (NONE SEEN); URINE RBC 0-2 /hpf (0-2)
[2022-10-12 08:46] LABS: BASO % 0.2 % (0.0-2.0); EOS % 0.2 % (0.0-4.0); GRAN # 2.8 K/mm3 (1.4-6.5); HEMATOCRIT 41.2 % (37.0-47.0); HEMOGLOBIN 14.3 g/dl (12.5-16.0); LYMPH # 1.2 K/mm3 (1.2-3.4); LYMPH % 27.4 % (20.0-51.0); MEAN CELL VOLUME 107 fl (80.0-100.0); MEAN CORPUSCULAR HEMOGLOBIN 37 pg (27-31); MEAN CORPUSCULAR HGB CONC 35 g/dl (33.0-37.0); MONO # 0.3 K/mm3 (0.1-0.6); PLATELET COUNT 260 K/mm3 (130-400); RED BLOOD COUNT 3.84 M/mm3 (4.10-5.30); REDCELL DISTRIBUTION WIDTH-CV 12.4 % (11.5-14.5)
[2022-10-12 08:46] LABS: URINE APPEARANCE Clear (CLEAR/HAZY); URINE BLOOD Negative (NEGATIVE); URINE COLOR Yellow (YELLOW); URINE GLUCOSE Negative (NEGATIVE); URINE KETONE Negative (NEGATIVE); URINE NITRATE Negative (NEGATIVE); URINE PROTEIN(semi-quant) Negative (NEGATIVE)
[2022-10-12 08:56] LABS: ALBUMIN 3.3 gm/dL (3.5-5.0); BILIRUBIN,TOTAL 1.2 mg/dL (0.2-1.2); CALCIUM 9.1 mg/dL (8.4-10.2); CREATININE, serum 0.72 mg/dL (0.57-1.11); POTASSIUM 3.9 mmol/L (3.5-4.5); TOTAL PROTEIN 7.4 gm/dL (6.2-8.1)
[2022-10-12] MEDS ORDERED: CEFTIN500 MG PO (09:28)
[2022-10-12 10:40] VITALS: BP 125/74; PULSE 88
== END 2022-10-12 10:40 | disposition home or self-care (01) ==
LOC: COL.ER 07:07
PROVIDERS: Family Medicine
DX: N30.90 Cystitis, unspecified without hematuria (principal); Z90.49 Acquired absence of other specified parts of digestive tract
CPT/HCPCS: J2550; J7030

== ENCOUNTER 2022-12-12 14:29 | Emergency (ER) | payer MEDICARE, MEDICAID ==
[~2022-12-12] VITALS: Ht 175.3 cm; Wt 120.5 kg
[2022-12-12] MEDS ORDERED: NORCO 325 MG-51 TAB PO (15:28)
[2022-12-12 15:55] VITALS: BP 120/83; PULSE 98; TEMP 98.2
== END 2022-12-12 15:55 | disposition home or self-care (01) ==
LOC: COL.ER 14:29
DX: S39.012A Strain of muscle, fascia and tendon of lower back, initial encounter (principal); E66.01 Morbid (severe) obesity due to excess calories; F17.200 Nicotine dependence, unspecified, uncomplicated; Z68.39 Body mass index [BMI] 39.0-39.9, adult; Z28.310 Unvaccinated for COVID-19; W17.89XA Other fall from one level to another, initial encounter

== ENCOUNTER 2023-09-09 15:48 | Emergency (ER) | payer MEDICARE, MEDICAID ==
[~2023-09-09] VITALS: Ht 172.7 cm; Wt 145.5 kg
[2023-09-09 15:50] VITALS: TEMP 98.4
[2023-09-09 18:00] VITALS: BP 122/82; PULSE 99
== END 2023-09-09 18:02 | disposition home or self-care (01) ==
LOC: COL.ER 15:48
DX: S93.402A Sprain of unspecified ligament of left ankle, initial encounter (principal); W01.0XXA Fall on same level from slipping, tripping and stumbling without subsequent striking against object, initial encounter; X50.1XXA Overexertion from prolonged static or awkward postures, initial encounter

== ENCOUNTER 2023-11-13 00:17 | Emergency (ER) | payer MEDICARE, MEDICAID ==
[~2023-11-13] VITALS: Ht 172.7 cm; Wt 138.6 kg
[2023-11-13 00:18] VITALS: TEMP 97.9
[2023-11-13] MEDS ORDERED: Acetaminophen 500 MG TAB PO ONE (00:30)
[2023-11-13 00:48] LABS: BASO % 0.3 % (0.0-2.0); EOS % 0.5 % (0.0-4.0); GRAN # 1.8 K/mm3 (1.4-6.5); GRAN % 47.3 % (42.2-75.2); HEMATOCRIT 42.5 % (37.0-47.0); HEMOGLOBIN 14.4 g/dl (12.5-16.0); LYMPH # 1.7 K/mm3 (1.2-3.4); MEAN CELL VOLUME 110 fl (80.0-100.0); MEAN CORPUSCULAR HEMOGLOBIN 37 pg (27-31); MEAN CORPUSCULAR HGB CONC 34 g/dl (33.0-37.0); MEAN PLATELET VOLUME 9.8 fl (7.4-10.4); MONO # 0.2 K/mm3 (0.1-0.6); MONO % 5.9 % (1.7-9.3); PLATELET COUNT 194 K/mm3 (130-400); RED BLOOD COUNT 3.85 M/mm3 (4.10-5.30); REDCELL DISTRIBUTION WIDTH-CV 11.9 % (11.5-14.5)
[2023-11-13 01:14] LABS: ALANINE AMINOTRANSFERASE 24 U/L (0-55); ALBUMIN 2.8 gm/dL (3.5-5.0); ALKALINE PHOSPHATASE 116 U/L (40-150); ANION GAP 13 mmol/L (7-16); AST,SGOT 27 U/L (5-34); BILIRUBIN,TOTAL 0.4 mg/dL (0.2-1.2); BLOOD UREA NITROGEN 6 mg/dL (7-19); CALCIUM 8.6 mg/dL (8.4-10.2); CHLORIDE 107 mmol/L (98-107); CREATININE, serum 0.75 mg/dL (0.57-1.11); GLUCOSE 148 mg/dL (70-99); POTASSIUM 3.3 mmol/L (3.5-4.5); SODIUM 139 mmol/L (136-145); TOTAL PROTEIN 6.6 gm/dL (6.2-8.1)
[2023-11-13 01:20] LABS: COLLECTION METHOD CLEAN CATCH
[2023-11-13 01:25] LABS: URINE APPEARANCE TURBID (CLEAR/HAZY); URINE BLOOD NEGATIVE (NEGATIVE); URINE COLOR YELLOW (YELLOW); URINE GLUCOSE NEGATIVE (NEGATIVE); URINE KETONE TRACE (NEGATIVE); URINE NITRATE NEGATIVE (NEGATIVE); URINE PROTEIN(semi-quant) NEGATIVE (NEGATIVE)
[2023-11-13 01:25] LABS: TROPONIN-I < 0.010 ng/mL (0.00-0.033)
[2023-11-13] MEDS ORDERED: Iohexol 350 - 100 ML VIAL IV ONE (01:41)
[2023-11-13] MEDS ORDERED: NS 60 ML IV ONE (01:42)
[2023-11-13] MEDS ORDERED: MACROBID 1100 MG/CAP PO (04:04)
[2023-11-13 04:21] VITALS: BP 120/83; PULSE 88
== END 2023-11-13 04:21 | disposition home or self-care (01) ==
LOC: COL.ER 00:17
PROVIDERS: Emergency Medicine
DX: R07.89 Other chest pain (principal); N39.0 Urinary tract infection, site not specified; R55 Syncope and collapse; R79.89 Other specified abnormal findings of blood chemistry; Z79.51 Long term (current) use of inhaled steroids
CPT/HCPCS: Q9967